=== PATIENT | male | born 1930 | race Caucasian/White ===

== ENCOUNTER 2017-06-25 20:30 | Emergency (ER) | payer MEDICARE ==
[~2017-06-25] VITALS: Ht 185.4 cm; Wt 91.0 kg
[~2017-06-25 20:30] MED LIST: ATOR40TA49 PO; AVOD0.5C PO; DIGO0.12 PO; FOSI10TA PO; GABA300C3 PO; HYDR-2768 PO; HYDR-3533 PO; NIAC500T5 PO; OMEP20TA39 PO; PRIL20CA PO; PROS5TAB2 PO; REST30CA PO; TIMO0.5S29 EACH EYE
[2017-06-25 20:43] VITALS: BP 121/73; PULSE 117; RESP 15; TEMP 100.1; O2SAT 99
[2017-06-25] MEDS ORDERED: SODIUM CHLOR 0.9% 1000 ML INJ 1,000 ML IV SCH (21:14)
[2017-06-25] MEDS ORDERED: ONDANSETRON HCL 4 MG/2 ML VIAL IVP ONE (21:15)
[2017-06-25] MEDS ORDERED: SODIUM CHLORIDE 0.9% FLUSH 10 ML FLUSH IV FLUSH PRN (21:15)
[2017-06-25] MEDS ORDERED: ACETAMINOPHEN 325 MG TAB PO ONE (21:15)
--- NOTE | 2017-06-25 21:29 | PD ---
HPI Chief Complaint: General Weakness Time Seen by Provider: 21:07 Travel History International Travel<30 days: No Contact w/Intl Traveler<30days: No Traveled to known affect area: No History of Present Illness HPI 87-year-old male complains of generalized weakness, nausea vomiting diarrhea. Patient started with nausea vomiting diarrhea at this morning. Patient complains generalized malaise and weakness this evening. Patient denies any headache. Patient denies any chest pain or shortness of breath. Patient denies abdominal pain. Patient denies any fever chills at home. Patient denies any focal weakness or numbness of extremity. Patient denies any blood or mucus in the stool. PFSH Past Medical History Hx Anticoagulant Therapy: Yes Asthma: Yes Autoimmune Disease: No Heart Rhythm Problems: Yes Cancer: No Cardiovascular Problems: Yes High Cholesterol: Yes Chest Pain: Yes Cerebrovascular Accident: No Coronary Artery Disease: Yes Diabetes: No Diminished Hearing: Yes ([place]) Endocrine: No Gastrointestinal Disorders: Yes GERD: Yes Genitourinary: Yes Hypertension: Yes Immune Disorder: No Musculoskeletal: No Neurologic: No Psychiatric: No Reproductive: No Respiratory: Yes Immunizations Current: Yes Migraines: Yes Myocardial Infarction: Yes Renal Failure: Yes Sickle Cell Disease: No Thyroid Disease: No Past Surgical History Abdominal Surgery: Yes (umbilical hernia repair) Appendectomy: Yes Cardiac Surgery: Yes Coronary Artery Bypass Graft: Yes (X 2 bypass) Eye Surgery: Yes (cataracts both eyes) Other Surgery: Yes (both hand carpel tunnel) Social History Alcohol Use: No Tobacco Use: No Substance Use: No Allergies-Medications (Allergen,Severity, Reaction): Coded Allergies: aspirin (Unverified Allergy, Intermediate, 06/25/17) morphine (Unverified Allergy, Unknown, "I TURNED BLUE", 03/11/17) Reported Meds & Prescriptions Reported Meds & Active Scripts Active Reported Hydrocodone-Acetaminophen 7.5 Mg-325 Mg Tab 1 Tab PO Q6H PRN Fosinopril (Fosinopril Sodium) 10 Mg Tab 10 Mg PO DAILY Temazepam 30 Mg Cap 30 Mg PO HS PRN Hydrochlorothiazide 25 Mg Tab 25 Mg PO BID Finasteride 5 Mg Tab 5 Mg PO DAILY Do not crush. Prilosec (Omeprazole Magnesium) 20 Mg Tab Atorvastatin (Atorvastatin Calcium) 40 Mg Tab 40 Mg PO HS Review of Systems General / Constitutional: No: Fever Eyes: No: Visual changes HENT: No: Headaches Cardiovascular: No: Chest Pain or Discomfort Respiratory: No: Shortness of Breath Gastrointestinal: Positive: Nausea, Vomiting, Diarrhea, No: Abdominal Pain Genitourinary: No: Dysuria Musculoskeletal: No: Pain Skin: No Rash Neurologic: No: Weakness Psychiatric: No: Depression Endocrine: No: Polydipsia Hematologic/Lymphatic: No: Easy Bruising Physical Exam Narrative GENERAL: Well-nourished, well-developed patient. SKIN: Focused skin assessment warm/dry. HEAD: Normocephalic. EYES: No scleral icterus. No injection or drainage. NECK: Supple, trachea midline. No JVD or lymphadenopathy. CARDIOVASCULAR: Regular rate and rhythm without murmurs, gallops, or rubs. RESPIRATORY: Breath sounds equal bilaterally. No accessory muscle use. GASTROINTESTINAL: Abdomen soft, non-tender, nondistended. MUSCULOSKELETAL: No cyanosis, or edema. BACK: Nontender without obvious deformity. No CVA tenderness. Neurologic exam normal. Data Data Last Documented VS Vital Signs Date Time Temp Pulse Resp B/P (MAP) Pulse Ox O2 Delivery O2 Flow Rate FiO2 06/25/17 22:58 99 Room Air 06/25/17 20:43 100.1 117 15 121/73 (89) Orders Orders Complete Blood Count With Diff (06/25/17 21:14) Comprehensive Metabolic Panel (06/25/17 21:14) Lipase (06/25/17 21:14) Urinalysis - C+S If Indicated (06/25/17 21:14) Iv Access Insert/Monitor (06/25/17 21:14) Ecg Monitoring (06/25/17 21:14) Oximetry (06/25/17 21:14) Ondansetron Inj (Zofran Inj) (06/25/17 21:15) Sodium Chlor 0.9% 1000 Ml Inj (Ns 1000 M (06/25/17 21:14) Sodium Chloride 0.9% Flush (Ns Flush) (06/25/17 21:15) Acetaminophen (Tylenol) (06/25/17 21:15) Blood Culture (06/25/17 21:14) Lactic Acid (06/25/17 21:14) Diphenoxylate/Atropine Tab (Lomotil Tab) (06/25/17 21:30) Ed Discharge Order (06/26/17 00:44) Labs Laboratory Tests Test 06/25/17 21:15 06/25/17 21:50 White Blood Count 13.7 TH/MM3 Red Blood Count 4.45 MIL/MM3 Hemoglobin 13.4 GM/DL Hematocrit 40.2 % Mean Corpuscular Volume 90.3 FL Mean Corpuscular Hemoglobin 30.0 PG Mean Corpuscular Hemoglobin Concent 33.3 % Red Cell Distribution Width 13.1 % Platelet Count 157 TH/MM3 Mean Platelet Volume 8.0 FL Neutrophils (%) (Auto) 89.2 % Lymphocytes (%) (Auto) 4.6 % Monocytes (%) (Auto) 5.5 % Eosinophils (%) (Auto) 0.4 % Basophils (%) (Auto) 0.3 % Neutrophils # (Auto) 12.3 TH/MM3 Lymphocytes # (Auto) 0.6 TH/MM3 Monocytes # (Auto) 0.7 TH/MM3 Eosinophils # (Auto) 0.1 TH/MM3 Basophils # (Auto) 0.0 TH/MM3 CBC Comment DIFF FINAL Differential Comment Blood Urea Nitrogen 28 MG/DL Creatinine 2.42 MG/DL Random Glucose 124 MG/DL Total Protein 7.4 GM/DL Albumin 3.6 GM/DL Calcium Level 8.9 MG/DL Alkaline Phosphatase 83 U/L Aspartate Amino Transf (AST/SGOT) 32 U/L Alanine Aminotransferase (ALT/SGPT) 26 U/L Total Bilirubin 0.8 MG/DL Sodium Level 136 MEQ/L Potassium Level 4.9 MEQ/L Chloride Level 108 MEQ/L Carbon Dioxide Level 20.0 MEQ/L Anion Gap 8 MEQ/L Estimat Glomerular Filtration Rate 26 ML/MIN Lactic Acid Level 2.2 mmol/L Lipase 186 U/L Urine Color YELLOW Urine Turbidity CLEAR Urine pH 5.0 Urine Specific [place] 1.023 Urine Protein 30 mg/dL Urine Glucose (UA) NEG mg/dL Urine Ketones NEG mg/dL Urine Occult Blood TRACE Urine Nitrite NEG Urine Bilirubin NEG Urine Urobilinogen LESS THAN 2.0 MG/DL Urine Leukocyte Esterase NEG Urine RBC 1 /hpf Urine WBC 2 /hpf Urine Squamous Epithelial Cells <1 /hpf Urine Amorphous Sediment RARE Urine Hyaline Casts 9 /lpf Urine Mucus FEW /lpf Microscopic Urinalysis Comment CULT NOT INDICATED MDM Medical Decision Making Medical Screen Exam Complete: Yes Emergency Medical Condition: Yes Interpretation(s) 21:27 PM. EKG shows sinus rhythm with sinus tachycardia rate 114. Nonspecific ST-T wave change. 12:39 AM. CBC WBC 13.7. 89 neutrophil. Bicarbonate 20. BUN 28. Creatinine 2.42. Lactic acid 2.2. UA negative. Differential Diagnosis Differential diagnosis including gastroenteritis, elect to light abnormality, dehydration, sepsis. Narrative Course 87-year-old male complains of nausea vomiting diarrhea. Normal saline solution 1 L IV bolus. Zofran 4 mg IV. Lomotil one tablet by mouth given. Diagnosis Primary Impression: Gastroenteritis Patient Instructions: General Instructions Additional Instructions: Tylenol for fever. Clear fluids for 24 hours and advance as tolerated. Take medications as needed. Follow-up with personal physician. Return if persistent problem or worse. Med/Other Pt SpecificInfo: Prescription(s) given Scripts Diphenoxylate-Atropine (Lomotil) 2.5-0.025 Mg Tab 1 TAB PO Q6H Y for DIARRHEA, #10 TAB 0 Refills Prov: Dell Carrillo MD 06/26/17 Ondansetron Odt (Zofran Odt) 4 Mg Tab 4 MG SL Q6HR Y for Nausea/Vomiting, #10 TAB 0 Refills Prov: Dell Carrillo MD 06/26/17 Disposition: 01 DISCHARGE HOME Condition: Stable Dell Carrillo MD Jun 25, 2017 21:28
[2017-06-25] MEDS ORDERED: DIPHENOXYLATE/ATROPINE 2.5 MG/0.025 MG TAB PO ONE (21:30)
[2017-06-25 22:06] LABS: AUTOMATED NEUTROPHIL # 12.3 TH/MM3 (1.8-7.7); BASOPHIL % 0.3 % (0.0-2.0); EOSINOPHIL # 0.1 TH/MM3 (0-0.4); EOSINOPHIL % 0.4 % (0.0-4.0); HEMATOCRIT 40.2 % (39.0-51.0); HEMO FLAGS DIFF FINAL; LYMPH % 4.6 % (9.0-44.0); LYMPHOCYTE # 0.6 TH/MM3 (1.0-4.8); MEAN CELL VOLUME 90.3 FL (80.0-100.0); MEAN CORPUSCULAR HGB CONC 33.3 % (32.0-36.0); MONO % 5.5 % (0.0-8.0); NEUT % 89.2 % (16.0-70.0); PLATELET COUNT 157 TH/MM3 (150-450); RED BLOOD COUNT 4.45 MIL/MM3 (4.50-5.90); RED CELL DISTRIBUTION WIDTH 13.1 % (11.6-17.2); WHITE BLOOD COUNT 13.7 TH/MM3 (4.0-11.0)
[2017-06-25 22:28] LABS: ALT (GPT) 26 U/L (12-78)
[2017-06-25 22:30] LABS: BLOOD, URINE TRACE (NEG); COMMENT (UR) CULT NOT INDICATED; CULTURE IF INDICATED CULT NOT INDICATED; GLUCOSE,URINE NEG (NEG); HYALINE CAST, URINE 9 /lpf (RARE); KETONE, URINE NEG (NEG); MUCUS URINE FEW /lpf (OCC); NITRITE,URINE NEG (NEG); SQUAMOUS EPITHELIAL CELL URINE <1 /hpf (0-5); URINE COLOR YELLOW (YELLW/STRAW)
[2017-06-25 22:31] LABS: ALKALINE PHOSPHATASE 83 U/L (45-117); TOTAL BILIRUBIN ADULT 0.8 MG/DL (0.2-1.0)
[2017-06-25 22:58] VITALS: O2SAT 99
[2017-06-25 23:00] LABS: ANION GAP 8 MEQ/L (5-15); AST (GOT) 32 U/L (15-37); BLOOD UREA NITROGEN 28 MG/DL (7-18); CHLORIDE 108 MEQ/L (98-107); GLOMERULAR FILTRATION RATE 26 ML/MIN (>89); SODIUM (NA) 136 MEQ/L (136-145)
[2017-06-25 23:02] LABS: POTASSIUM 4.9 MEQ/L (3.5-5.1)
[2017-06-25] MEDS ORDERED: ATOR40TA16 PO (23:41)
[2017-06-25] MEDS ORDERED: PRIL20TA2 (23:41)
[2017-06-25] MEDS ORDERED: FINA5TAB2 PO (23:41)
[2017-06-25] MEDS ORDERED: HYDR25TA5 PO (23:41)
[2017-06-25] MEDS ORDERED: TEMA30CA PO (23:43)
[2017-06-25] MEDS ORDERED: FOSI10TA PO (23:43)
[2017-06-25] MEDS ORDERED: HYDR-3580 PO (23:43)
[2017-06-26] MEDS ORDERED: ZOFR4TAB3 SL (00:45)
[2017-06-26] MEDS ORDERED: LOMO2.5T PO (00:45)
--- NOTE | 2017-06-26 16:04 | EKG ---
Date Performed: 06/25/2017 Time Performed: 20:47:51 PTAGE: 87 years EKG: SINUS TACHYCARDIA MARKED LEFT AXIS DEVIATION POSSIBLE RIGHT VENTRICULAR CONDUCTION DELAY NO NSPECIFIC T-WAVE ABNORMALITY ABNORMAL ECG Since PREVIOUS TRACING , no significant change noted PREVIOUS TRACIN04/29/2016 18.30 DOCTOR: Ember Delaney Interpretating Date/Time 06/26/2017 16:03:01
== END 2017-06-26 01:54 | disposition home or self-care (01) ==
LOC: NEPE 20:30
DX: K52.9 Noninfective gastroenteritis and colitis, unspecified (principal); R00.0 Tachycardia, unspecified; I12.9 Hypertensive chronic kidney disease with stage 1 through stage 4 chronic kidney disease, or unspecified chronic kidney disease; N18.9 Chronic kidney disease, unspecified; R94.31 Abnormal electrocardiogram [ECG] [EKG]; J45.909 Unspecified asthma, uncomplicated; I25.10 Atherosclerotic heart disease of native coronary artery without angina pectoris; K21.9 Gastro-esophageal reflux disease without esophagitis; I25.2 Old myocardial infarction
CPT/HCPCS: 80053; 81001; 83605; 83690; 85025; 87040; 93005; 96374; 99284; J2405; J7030

== ENCOUNTER 2017-11-04 19:01 | Emergency (ER) | payer MEDICARE ==
[~2017-11-04] VITALS: Ht 175.3 cm; Wt 92.9 kg
[~2017-11-04 19:01] MED LIST changes: +ATOR40TA16 PO; -ATOR40TA49 PO; -AVOD0.5C PO; -DIGO0.12 PO; +FINA5TAB2 PO; -GABA300C3 PO; -HYDR-2768 PO; -HYDR-3533 PO; +HYDR-3580 PO; +HYDR25TA5 PO; +LOMO2.5T PO; -NIAC500T5 PO; -OMEP20TA39 PO; -PRIL20CA PO; +PRIL20TA2; -PROS5TAB2 PO; -REST30CA PO; +TEMA30CA PO; -TIMO0.5S29 EACH EYE; +ZOFR4TAB3 SL
[2017-11-04 19:06] VITALS: BP 143/83; PULSE 107; RESP 18; TEMP 98.7; O2SAT 97
[2017-11-04 19:53] VITALS: RESP 18; O2SAT 98
[2017-11-04] MEDS ORDERED: FAMOTIDINE 20 MG/2 ML VIAL IV PUSH ONE (20:00)
[2017-11-04] MEDS ORDERED: SODIUM CHLORIDE 0.9% FLUSH 10 ML FLUSH IV FLUSH PRN (20:00)
[2017-11-04] MEDS ORDERED: methylPREDNISolone SOD SUCC 125 MG/2 ML VIAL IV PUSH ONE (20:00)
[2017-11-04] MEDS ORDERED: diphenhydrAMINE HCL 50 MG/ML VIAL IVP ONE (20:00)
[2017-11-04] MEDS ORDERED: BACT800T5 PO (20:48)
--- NOTE | 2017-11-04 20:48 | PD ---
HPI Chief Complaint: Allergic/Adverse Reaction Time Seen by Provider: 19:46 Travel History International Travel<30 days: No Contact w/Intl Traveler<30days: No Traveled to known affect area: No History of Present Illness HPI 87-year-old male complains of erythema about the bilateral lower extremities. He was started on Keflex to treat his cellulitis about the left thigh lesion. The rash started about an hour or 2 after he ingested the Keflex. No shortness of breath. No wheezing. No sensation of throat fullness. Benadryl 25 mg by mouth was marginally beneficial at home. Onset gradual. PFSH Past Medical History Hx Anticoagulant Therapy: Yes Asthma: Yes Autoimmune Disease: No Heart Rhythm Problems: Yes Cancer: No Cardiovascular Problems: Yes High Cholesterol: Yes Chest Pain: Yes Cerebrovascular Accident: No Coronary Artery Disease: Yes Diabetes: No Diminished Hearing: Yes ([place]) Endocrine: No Gastrointestinal Disorders: Yes GERD: Yes Genitourinary: Yes Heparin Induced Thrombocytopen: No Hypertension: Yes Immune Disorder: No Implanted Vascular Access Dvce: No Musculoskeletal: No Neurologic: No Psychiatric: No Reproductive: No Respiratory: Yes Immunizations Current: Yes Migraines: Yes Myocardial Infarction: Yes Renal Failure: Yes Sickle Cell Disease: No Thyroid Disease: No Tetanus Vaccination: > 5 Years Influenza Vaccination: No Past Surgical History Abdominal Surgery: Yes (umbilical hernia repair) Appendectomy: Yes Cardiac Surgery: Yes Coronary Artery Bypass Graft: Yes (X 2 bypass) Eye Surgery: Yes (cataracts both eyes) Other Surgery: Yes (both hand carpel tunnel) Social History Alcohol Use: No Tobacco Use: No Substance Use: No Allergies-Medications (Allergen,Severity, Reaction): Coded Allergies: aspirin (Verified Allergy, Intermediate, 11/04/17) cephalexin (Verified Allergy, Mild, rash, 11/04/17) morphine (Verified Allergy, Unknown, "I TURNED BLUE", 11/04/17) Reported Meds & Prescriptions Reported Meds & Active Scripts Active Bactrim DS (Sulfamethoxazole-Trimethoprim) 800-160 Mg Tab 1 Tab PO BID Reported Hydrocodone-Acetaminophen 7.5 Mg-325 Mg Tab 1 Tab PO Q6H PRN Fosinopril (Fosinopril Sodium) 10 Mg Tab 10 Mg PO DAILY Temazepam 30 Mg Cap 30 Mg PO HS PRN Finasteride 5 Mg Tab 5 Mg PO DAILY Do not crush. Prilosec (Omeprazole Magnesium) 20 Mg Tab Atorvastatin (Atorvastatin Calcium) 40 Mg Tab 40 Mg PO HS Review of Systems Except as stated in HPI: all other systems reviewed are Neg General / Constitutional: No: Fever Physical Exam Narrative GENERAL: 87-year-old male well-nourished well-developed no acute distress Vital Signs Date Time Temp Pulse Resp B/P (MAP) Pulse Ox O2 Delivery O2 Flow Rate FiO2 11/04/17 21:03 86 18 118/56 (76) 99 Room Air 11/04/17 19:53 18 98 Room Air 11/04/17 19:43 98 Room Air 11/04/17 19:06 98.7 107 18 143/83 (103) 97 SKIN: Warm and dry. Blanching erythema confluent about the legs and trunk. HEAD: Atraumatic. Normocephalic. EYES: Pupils equal and round. No scleral icterus. No injection or drainage. ENT: No nasal bleeding or discharge. Mucous membranes pink and moist. Posterior oropharynx widely patent. NECK: Trachea midline. No JVD. CARDIOVASCULAR: Regular rate and rhythm. RESPIRATORY: No accessory muscle use. Clear to auscultation. Breath sounds equal bilaterally. GASTROINTESTINAL: Abdomen soft, non-tender, nondistended. Hepatic and splenic margins not palpable. MUSCULOSKELETAL: Extremities without clubbing, cyanosis, or edema. No obvious deformities. NEUROLOGICAL: Awake and alert. No obvious cranial nerve deficits. Motor grossly within normal limits. Five out of 5 muscle strength in the arms and legs. Normal speech. PSYCHIATRIC: Appropriate mood and affect; insight and judgment normal. Data Data Last Documented VS Vital Signs Date Time Temp Pulse Resp B/P (MAP) Pulse Ox O2 Delivery O2 Flow Rate FiO2 11/04/17 21:03 86 18 118/56 (76) 99 Room Air 11/04/17 19:06 98.7 Orders Orders Ecg Monitoring (11/04/17 19:46) Iv Access Insert/Monitor (11/04/17 19:46) Oximetry (11/04/17 19:46) Diphenhydramine Inj (Benadryl Inj) (11/04/17 20:00) Methylprednisolone So Succ Inj (Solumedr (11/04/17 20:00) Sodium Chloride 0.9% Flush (Ns Flush) (11/04/17 20:00) Famotidine Inj (Pepcid Inj) (11/04/17 20:00) Ed Discharge Order (11/04/17 20:50) [facility] Medical Decision Making Medical Screen Exam Complete: Yes Emergency Medical Condition: Yes Medical Record Reviewed: Yes Differential Diagnosis , Cellulitis, anaphylaxis, urticaria, cellulitis Narrative Course Patient received Solu-Medrol, Pepcid and more IV Benadryl. Symptoms resolved after about an hour. Bactrim prescribed in lieu of Keflex. Patient education regarding Keflex. Diagnosis Primary Impression: Allergic reaction Qualified Codes: T78.40XA - Allergy, unspecified, initial encounter Referrals: Primary Care Physician call for appointment Med/Other Pt SpecificInfo: Prescription(s) given Scripts Sulfamethoxazole-Trimethoprim (Bactrim DS) 800-160 Mg Tab 1 TAB PO BID for Infection, #14 TAB 0 Refills Prov: Luis Alberto Castaneda MD 11/04/17 Disposition: 01 DISCHARGE HOME Condition: Stable Luis Alberto Castaneda MD Nov 04, 2017 20:48
[2017-11-04 21:03] VITALS: BP 118/56; PULSE 86; RESP 18; O2SAT 99
== END 2017-11-04 21:22 | disposition home or self-care (01) ==
LOC: PHED 19:01
DX: T36.1X5A Adverse effect of cephalosporins and other beta-lactam antibiotics, initial encounter (principal); E78.00 Pure hypercholesterolemia, unspecified; H91.90 Unspecified hearing loss, unspecified ear; I10 Essential (primary) hypertension; I25.10 Atherosclerotic heart disease of native coronary artery without angina pectoris; I25.2 Old myocardial infarction; J45.909 Unspecified asthma, uncomplicated; K21.9 Gastro-esophageal reflux disease without esophagitis; Z88.2 Allergy status to sulfonamides; Z88.5 Allergy status to narcotic agent; Z95.1 Presence of aortocoronary bypass graft; Z79.01 Long term (current) use of anticoagulants
CPT/HCPCS: 96374; 96375; 99284; J1200; J2930

== ENCOUNTER → 2017-11-25 | Day surgery (SDC) | payer MEDICARE ==
[~2017-11-25] MED LIST changes: +BACT800T5 PO; +CLINDAMYCIN PHOS 600 MG/4 ML VIAL ONE; -HYDR25TA5 PO; +LACTATED RINGER'S 1000 ML INJ 1,000 ML ONE; +LIDOCAINE 1%/EPINEPHrine 1:100,000 SOLN 30 ML VIAL ONE; -LOMO2.5T PO; +MIDAZOLAM HCL 2 MG/2 ML VIAL ONE; +MINERAL OIL 10 ML VIAL ONE; +PROPOFOL 200 MG/20 ML AMP IV ONE; +SODIUM BICARBONATE 8.4% INJ 50 ML ONE; -ZOFR4TAB3 SL
--- NOTE | 2017-11-25 08:39 | PD.OP ---
Operative Report Left thigh keratoacanthoma / SCc Postoperative Diagnosis: Left thigh keratoacanthoma / SCC - Procedure: Excision Left thigh keratoacanthoma / SCC 4.5 x 2.5 cm, frozen section, direct closure Anesthesia: IV sed, Local Lidocaine 1% with Epi + Sodium bicarb Surgeon: Michel Robins Cone Picker(s): RN Resident Surgeon: no Operation and Findings: Left thigh large nodular tumor - had rapid growth initially - approx 3 cm base diameter. has gone down in size in the last couple of weeks - currently 2 cm base diameter noted in holding area. A direct closure is possible now. Preoperative markings were made. patient brought to the OR, IV sedation started. time out done. Lidocaine 1% with epi and sodium bicarb used to infiltrate the site. Prep and drape done. Lesion excised with 4.5 x 2.5 cm down to and including normal fat. Suture marked superior. Sent for frozen section Area closed directly with 3/0 Vicryl internal sutures with undermining of the sides. Orientation horizontal. Minimal blood loss, less than 2 cc, Frozen section report - Invasive SCC with KA, clear margins. Patient stable, no complications. Michel Robins MD November 25, 2017 08:39
== END | disposition home or self-care (01) ==
LOC: ESDC 06:10
PROVIDERS: ATTEND Plastic Surgery
DX: C44.729 Squamous cell carcinoma of skin of left lower limb, including hip (principal)
CPT/HCPCS: 00400; 11606; 88305; 88331; J2250; J3010; J7120

== ENCOUNTER 2018-03-28 16:33 | Inpatient (IN) ==
[2018-03-28 17:20] LABS: Baso # (Auto) 0.3 th/mm3 (0.0-0.2); Baso % (Auto) 1.8 % (0.0-2.0); Eos % (Auto) 0.2 % (0.0-4.0); Hematocrit 39.5 % (39.0-51.0); Hemoglobin 13.1 gm/dL (13.0-17.0); Lymph # (Auto) 2.2 th/mm3 (1.0-4.8); Mean Corpuscular HGB Conc 33.2 % (32.0-36.0); Mean Corpuscular Hemoglobin 29.3 pg (27.0-34.0); Mean Corpuscular Volume 88.2 fL (80.0-100.0); Mean Platelet Volume 7.7 fL (7.0-11.0); Mono # (Auto) 1.1 th/mm3 (0.0-0.9); Mono % (Auto) 6.8 % (0.0-8.0); Neut # (Auto) 12.1 th/mm3 (1.8-7.7); Neut % (Auto) 77.2 % (16.0-70.0); Platelet Count 165 th/mm3 (150-450); Red Blood Count 4.48 mil/mm3 (4.50-5.90); Red Cell Distribution Width 12.7 % (11.6-17.2); White Blood Count 15.7 th/mm3 (4.0-11.0)
[2018-03-28 17:26] LABS: Bilirubin,Urine Negative (Negative); Clarity,Urine Slightly Cloudy (Clear); Color,Urine Yellow (Yellw/Straw); Glucose,Urine (UA) Negative (Negative); Leukocyte Esterase,Urine Small (Negative); Nitrite,Urine Positive (Negative); PH,Urine 5.5 (5.0-8.5); Specific Gravity,Urine Greater/Equal 1.030 (1.002-1.035); Urobilinogen,Urine 0.2 mg/dL (Less than 2)
--- NOTE | 2018-03-28 17:27 | ED ---
HPI General Chief complaint: Weakness Stated complaint: Diarrhea Source: patient and EMS Mode of arrival: EMS Limitations: altered mental status History of Present Illness HPI Narrative: 88-year-old male patient presents to the brought in by EMS, apparently had fallen in his shower and he states that the shower pato had fallen on his head, he has a small contusion and laceration over the right forehead. He is not sure exactly sure how it happened, apparently had to crawl on the bathroom floor, he states that it happened around 10 PM last night. He somehow got himself into his chair and was sitting naked, and it is unclear of who found him but somebody called EMS for him. He states that he has been having diarrhea. He denies any chest pains, trouble breathing, or other issues. He feels generally weak. Related Data Home Medications Medication Instructions Recorded Confirmed atorvastatin 40 mg PO DAILY 03/28/18 03/28/18 finasteride 5 mg PO DAILY 03/28/18 03/28/18 omeprazole 20 mg PO DAILY 03/28/18 03/28/18 Allergies Allergy/AdvReac Type Severity Reaction Status Date / Time aspirin Allergy Intermediate Hives Verified 03/28/18 16:36 cephalexin Allergy Mild rash Verified 03/28/18 16:36 morphine Allergy Unknown "I TURNED Verified 03/28/18 16:36 BLUE" Review of Systems ROS Unobtainable ROS Unobtainable: unobtainable due to mental status PMFSH Medical History Medical History Hx of gastroesophageal reflux (GERD) (Acute) History of high cholesterol (Acute) Surgical History Surgical History Hx of eye surgery (Acute) Hx of appendectomy (Acute) History of tonsillectomy and adenoidectomy (Acute) Hx of laminectomy (Acute) History of open heart surgery (Acute) Social History Social History Substance History: No History of Abuse Second Hand Smoke Exposure: No Smoking Status: Never smoker How Often Do You Have a Drink Containing Alcohol: Monthly or less Recent Travel in [facility] within the Last 8 Weeks: No Recent Out of Country Travel within the Last 8 Weeks: No Immunization History Tetanus Immunization: <5 Years Hx Influenza Vaccine This Season: No Exam Narrative Exam Narrative: GENERAL: Well-developed elderly white male patient currently and moderate distress. Awake, disoriented. SKIN: Focused skin assessment warm/dry. HEAD: Atraumatic. Normocephalic. EYES: Pupils equal and round. No scleral icterus. No injection or drainage. ENT: No nasal bleeding or discharge. Mucous membranes pink and moist. NECK: Trachea midline. No JVD. CARDIOVASCULAR: Regular rate and rhythm. No murmur appreciated. RESPIRATORY: No accessory muscle use. Clear to auscultation. Breath sounds equal bilaterally. GASTROINTESTINAL: Abdomen soft, non-tender, nondistended. Hepatic and splenic margins not palpable. RECTAL EXAM: No masses or tenderness, stool is brown. Hemoccult negative. MUSCULOSKELETAL: No obvious deformities. No clubbing. No cyanosis. No edema. NEUROLOGICAL: Awake and alert. No obvious cranial nerve deficits. Motor grossly within normal limits. Normal speech. PSYCHIATRIC: Appropriate mood and affect; insight and judgment normal. Procedures Hemaprompt Stool Procedural Steps Taken: specimen placed in appropriate test area, developer placed on specimen and control areas and controls appropriately positive and negative Hemaprompt Stool Result: negative Course Initial Documented Vital Signs Temperature 98.7 F 03/28/18 16:37 Pulse Rate 77 03/28/18 16:37 Respiratory Rate 16 03/28/18 16:37 Blood Pressure 118/81 03/28/18 16:37 Pulse Oximetry 94 L 03/28/18 16:37 Last Documented Vital Signs Temperature 98.7 F 03/28/18 16:37 Pulse Rate 81 03/28/18 17:24 Respiratory Rate 16 03/28/18 17:24 Blood Pressure 113/81 03/28/18 17:24 Pulse Oximetry 98 03/28/18 17:24 Medical Decision Making [facility] Narrative Medical decision making narrative: CT the brain did not show any signs of acute intracranial processes. EKG shows no acute dysrhythmias. Lab work shows a significant UTI with a white count of 15, concerning for underlying sepsis. IV antibiotics were initiated after cultures were drawn. At this point, case has been discussed with Dr. Domingo for admission for further treatment. Medical Screen Exam Complete: Yes Emergency Medical Condition: Yes Differential Diagnosis Differential Diagnosis: Syncope versus dehydration versus electrolyte abnormalities versus intracranial injuries Lab Data Lab results reviewed: Yes I reviewed the patient's lab results. Result diagrams: 03/28/18 17:00 03/28/18 17:00 Lab Results 03/28/18 03/28/18 03/28/18 Range/Units 17:00 17:00 17:00 CBC w Diff Auto diff final WBC 15.7 H (4.0-11.0) th/mm3 RBC 4.48 L (4.50-5.90) mil/mm3 Hgb 13.1 (13.0-17.0) gm/dL Hct 39.5 (39.0-51.0) % MCV 88.2 (80.0-100.0) fL MCH 29.3 (27.0-34.0) pg MCHC 33.2 (32.0-36.0) % RDW 12.7 (11.6-17.2) % Plt Count 165 (150-450) th/mm3 MPV 7.7 (7.0-11.0) fL Neut % (Auto) 77.2 H (16.0-70.0) % Lymph % (Auto) 14.0 (9.0-44.0) % [place] % (Auto) 6.8 (0.0-8.0) % Eos % (Auto) 0.2 (0.0-4.0) % Baso % (Auto) 1.8 (0.0-2.0) % Neut # (Auto) 12.1 H (1.8-7.7) th/mm3 Lymph # (Auto) 2.2 (1.0-4.8) th/mm3 [place] # (Auto) 1.1 H (0.0-0.9) th/mm3 Eos # (Auto) 0.0 (0.0-0.4) th/mm3 Baso # (Auto) 0.3 H (0.0-0.2) th/mm3 WBC Differential . Differential Comment . Sodium 140 (136-145) meq/L Potassium 4.3 (3.5-5.1) meq/L Chloride 110 H (98-107) meq/L Carbon Dioxide 20.4 L (21.0-32.0) meq/L Anion Gap 10 (5-15) meq/L BUN 32 H (7-18) mg/dL Creatinine 2.00 H (0.60-1.30) mg/dL Estimated GFR 32 L (>89) mL/min Random Glucose 91 (74-106) mg/dL Lactic Acid (0.4-2.0) mmol/L Calcium 8.6 (8.5-10.1) mg/dL Total Bilirubin 2.0 H (0.2-1.0) mg/dL AST 62 H (15-37) U/L ALT 36 (12-78) U/L Alkaline Phosphatase 83 (45-117) U/L Troponin I 0.08 H (0.02-0.05) ng/mL Total Protein 6.8 (6.4-8.2) g/dL Albumin 3.2 L (3.4-5.0) g/dL Ur Collection Type Clean catch Urine Color Yellow (Yellw/Straw) Urine Clarity Slightly cloudy (Clear) Urine pH 5.5 (5.0-8.5) Ur Specific Bell Greater/equal 1.030 (1.002-1.035) Urine Protein 100 H (Neg-Trace) mg/dL Urine Glucose (UA) Negative (Negative) mg/dL Urine Ketones Negative (Negative) mg/dL Urine Occult Blood Large H (Negative) Urine Nitrate Positive H (Negative) Urine Bilirubin Negative (Negative) Urine Urobilinogen 0.2 (Less than 2) mg/dL Ur Leukocyte Esterase Small H (Negative) Urine RBC 15-50 H (0-3) /hpf Urine WBC 51-189 H (0-5) /hpf Urine WBC Clumps Moderate H (None) Ur Squamous Epith Cells 6-10 H (0-5) /hpf Urine Bacteria Many H (None) /hpf Micro UA Comment Culture indicated Ur Microscopic Review Microscopic reviewed Urine Culture Comments Culture indicated 03/28/18 Range/Units 18:00 CBC w Diff WBC (4.0-11.0) th/mm3 RBC (4.50-5.90) mil/mm3 Hgb (13.0-17.0) gm/dL Hct (39.0-51.0) % MCV (80.0-100.0) fL MCH (27.0-34.0) pg MCHC (32.0-36.0) % RDW (11.6-17.2) % Plt Count (150-450) th/mm3 MPV (7.0-11.0) fL Neut % (Auto) (16.0-70.0) % Lymph % (Auto) (9.0-44.0) % [place] % (Auto) (0.0-8.0) % Eos % (Auto) (0.0-4.0) % Baso % (Auto) (0.0-2.0) % Neut # (Auto) (1.8-7.7) th/mm3 Lymph # (Auto) (1.0-4.8) th/mm3 [place] # (Auto) (0.0-0.9) th/mm3 Eos # (Auto) (0.0-0.4) th/mm3 Baso # (Auto) (0.0-0.2) th/mm3 WBC Differential Differential Comment Sodium (136-145) meq/L Potassium (3.5-5.1) meq/L Chloride (98-107) meq/L Carbon Dioxide (21.0-32.0) meq/L Anion Gap (5-15) meq/L BUN (7-18) mg/dL Creatinine (0.60-1.30) mg/dL Estimated GFR (>89) mL/min Random Glucose (74-106) mg/dL Lactic Acid 1.3 (0.4-2.0) mmol/L Calcium (8.5-10.1) mg/dL Total Bilirubin (0.2-1.0) mg/dL AST (15-37) U/L ALT (12-78) U/L Alkaline Phosphatase (45-117) U/L Troponin I (0.02-0.05) ng/mL Total Protein (6.4-8.2) g/dL Albumin (3.4-5.0) g/dL Ur Collection Type Urine Color (Yellw/Straw) Urine Clarity (Clear) Urine pH (5.0-8.5) Ur Specific Bell (1.002-1.035) Urine Protein (Neg-Trace) mg/dL Urine Glucose (UA) (Negative) mg/dL Urine Ketones (Negative) mg/dL Urine Occult Blood (Negative) Urine Nitrate (Negative) Urine Bilirubin (Negative) Urine Urobilinogen (Less than 2) mg/dL Ur Leukocyte Esterase (Negative) Urine RBC (0-3) /hpf Urine WBC (0-5) /hpf Urine WBC Clumps (None) Ur Squamous Epith Cells (0-5) /hpf Urine Bacteria (None) /hpf Micro UA Comment Ur Microscopic Review Urine Culture Comments Imaging Data Attestation: I personally reviewed and interpreted this imaging study as follows : Radiologist's impression: Head CT 03/28/18 17:00 CONCLUSION: Slight chronic small vessel ischemic and atrophic changes and 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 Chest X-Ray 03/28/18 17:27 CONCLUSION: No acute cardiopulmonary disease. Discharge Plan Discharge Disposition Patient Disposition: 30 Still Patient Discharge Condition Condition: Stable Discharge Details Anticipated Discharge Date: 03/28/18 Diagnosis: Acute UTI, Sepsis Physicians Team ED Provider: Mark Zielger Primary Care Provider: Mehdi Domingo Rxs /Orders / Referrals /Forms Prescriptions: No Action atorvastatin 40 mg Tablet 40 mg PO DAILY RF: 0 finasteride 5 mg Tablet 5 mg PO DAILY RF: 0 omeprazole 20 mg Tablet,Delayed Release (Dr/Ec) 20 mg PO DAILY RF: 0 Discharge Interventions Interventions: Vital Signs Last Done: 03/28/18 17:24 Status ED Status: With Nurse
[2018-03-28 17:29] LABS: Chloride 110 meq/L (98-107); Potassium 4.3 meq/L (3.5-5.1); Sodium 140 meq/L (136-145)
[2018-03-28 17:33] LABS: Bacteria,Urine Many /hpf; Calcium 8.6 mg/dL (8.5-10.1); WBC,Urine 51-189 /hpf (0-5)
[2018-03-28 17:34] LABS: Albumin 3.2 g/dL (3.4-5.0); Anion Gap 10 meq/L (5-15); Blood Urea Nitrogen 32 mg/dL (7-18); Carbon Dioxide 20.4 meq/L (21.0-32.0); Glucose,Random 91 mg/dL (74-106)
[2018-03-28 17:37] LABS: Alanine Aminotransferase 36 U/L (12-78); Aspartate Aminotransferase 62 U/L (15-37); Glomerular Filtration Rate 32 mL/min (>89)
[2018-03-28 17:39] LABS: Total Protein 6.8 g/dL (6.4-8.2)
[2018-03-28 17:40] LABS: Alkaline Phosphatase 83 U/L (45-117)
[2018-03-28 17:42] LABS: Troponin I 0.08 ng/mL (0.02-0.05)
[2018-03-28] MEDS ORDERED: Piperacil/Tazo 4.5 GM Premix 4.5 GM/100 ML BAG IV.SIG STA (17:46)
[2018-03-28] MEDS ORDERED: Sodium Chlor 0.9% Inj 500 ML IV.SIG SCH (18:00)
--- NOTE | 2018-03-28 18:02 | XR ---
EXAM DATE: 03/28/2018 5:54 PM EDT AGE/SEX: 88 years / Male INDICATIONS: Palpitations. CLINICAL DATA: This is the patient's initial encounter. Patient reports that signs and symptoms have been present for 1 day and indicates a pain score of 0/10. MEDICAL/SURGICAL HISTORY: Hypertension. CABG. COMPARISON: No prior exams available for comparison. FINDINGS: The lungs are clear without infiltrate, nodule, or mass. There is no appreciable pleural effusion for technique. Heart and mediastinum are unremarkable. There is evidence for prior median sternotomy. CONCLUSION: No acute cardiopulmonary disease. Electronically signed by: Wan Rich MD 03/28/2018 6:01 PM EDT
--- NOTE | 2018-03-28 18:46 | CT ---
EXAM DATE: 03/28/2018 6:43 PM EDT AGE/SEX: 88 years / Male INDICATIONS: Fall last night, weakness CLINICAL DATA: This is the patient's initial encounter. Patient reports that signs and symptoms have been present for 1 day and indicates a pain score of 6/10. MEDICAL/SURGICAL HISTORY: Gastroesophageal reflux disease. Tonsillectomy. Appendectomy. Eye surger y, Heart surgery RADIATION DOSE: 60.31 CTDI (mGy) COMPARISON: No prior exams available for comparison. TECHNIQUE: CT of the head without contrast. Using automated exposure control and adjustment of the mA and/or kV according to patient size, radiation dose was kept as low as reasonably achievable to ob tain optimal diagnostic quality images. DICOM format image data is available electronically for revi ew and comparison. FINDINGS: There is no evidence for intracranial hemorrhage, mass effect, mass lesions, or edema. The visualize d bony structures appear intact. Slight degree of brain atrophy is seen. Slight periventricular whit e matter changes are seen nonspecific mostly consistent with chronic small vessel ischemic changes. There are no signs of acute infarction for technique. There is near complete opacification of right s phenoid sinus. CONCLUSION: Slight chronic small vessel ischemic and atrophic changes and chronic sinusitis of the r ight sphenoid sinus . Electronically signed by: Wan Rich MD 03/28/2018 6:45 PM EDT
--- NOTE | 2018-03-28 20:41 | P.HP ---
History of Present Illness Service: [facility] hospitalistDrRashid Domingo Primary Care Physician: Mehdi Domingo MD Chief Complaint: Weakness/Fall History of Present Illness: This is an 88-year-old white male who was brought to the emergency room by EMS earlier today. He tells me that he was in the shower last night and somehow got tripped up and grabbed hold of the curtain pato and as he fell to the floor the curtain pato hit him in the head. He did not lose consciousness that he is aware of. He was unable to get up off the floor and states he laid on the floor of his bathroom until someone came to the house today. He is not clear how they found out that he needed help because he does not recall using the telephone to call anyone but he did state the phone saying running several times throughout the day. In the ER he had a mild elevated white blood cell count. His urinalysis suggest a urinary tract infection. He is not noted to be febrile. He stated he had some diarrhea yesterday but has not. He denies any shortness of breath or chest pain. He is admitted for IV antibiotic therapy and some gentle gentle hydration. He may very well need temporary placement and on long-term facility. 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 EGD in 2001 and 2004 that showed gastritis Appendectomy PTCA 1993 Two-vessel coronary artery bypass grafting in 1993 Umbilical hernia repair at age 14 Allergy: Cephalexin Medications: Atorvastatin 40 mg a day Finasteride 5 mg a day Omeprazole 20 mg a day Temazepam 30 mg at night as needed Atenolol eyedrops 0.5% 1 drop to both eyes twice a day for glaucoma HydrocodoneAPAP 7.5 mg325 mg every 6 hours as needed pain Lisinopril 10 mg a day Family history: Father at age 42 of tuberculosis Mother at age 74 of a myocardial infarction Social history: He has never smoked and does not use alcohol. He is retired and previously did maintenance work. He is . - Diagnosis (1) UTI (urinary tract infection) (2) Sepsis (3) Generalized weakness (4) Status post fall (5) BPH (benign prostatic hyperplasia) (6) Hyperlipidemia (7) Coronary artery disease (8) Hypertension (9) Stage 3 chronic kidney disease (10) Peripheral neuropathy (11) AAA (abdominal aortic aneurysm) (12) GERD (gastroesophageal reflux disease) (13) Glaucoma (14) Osteoarthritis Inpatient Certification: I certify that the inpatient services were ordered in accordance with Medicare regulations governing the order. This includes certification that hospital inpatient services are reasonable and necessary and in the case of services not specified as inpatient-only under 42 CFR 419.22(n), that they are appropriately provided as inpatient services in accordance to with the 2-midnight benchmark under 43 CFR 412.3(e) Estimated Total Length of Stay (Days): 2 Plans for Post Hospital Care: Not yet determined Review of Systems Review of systems: General: Denies any fever, chills, sweats. He has just generalized weakness. HEENT: No visual complaints. No runny nose. No sore throat. He has slight hearing problems as usual. Denies any significant headache. He does have a bruise on his forehead from where he fell and hit his head. Cardiovascular: Denies any chest pain, shortness of breath, or heart palpitations. Pulmonary: Denies any significant cough, shortness of breath, pleuritic chest pain Gastrointestinal: Denies any heartburn, indigestion, abdominal pain, nausea, vomiting. Denies any rectal bleeding or melena. He denies constipation. He did have some loose bowel movement yesterday. : Denies any dysuria, hematuria, urgency Musculoskeletal: He has just some slight low back pain which is not unusual for him and he does have some arthritis complaints at times as well. Extremities: He denies any increased swelling of his feet or calf pain. Skin: Without any rash Neuro: He has just a slight headache but not significant. He does have problem with his memory which he has had for a while. He denies any focal weakness. He does have chronic neuropathy in his lower extremities. [facility] - History History Provided By: Patient - Medical History Medical History: Medical History (Last Reviewed 03/28/18 @ 17:26 by Mark Ziegler MD) Hx of gastroesophageal reflux (GERD) (Acute) History of high cholesterol (Acute) - Surgical History Surgical History: Surgical History (Last Reviewed 03/28/18 @ 17:26 by Mark Ziegler MD) Hx of eye surgery (Acute) Hx of appendectomy (Acute) History of tonsillectomy and adenoidectomy (Acute) Hx of laminectomy (Acute) History of open heart surgery (Acute) - Tobacco History Second Hand Smoke Exposure: No Smoking Status: Never smoker - Alcohol History How Often Do You Have a Drink Containing Alcohol: Monthly or less - Substance Use History Substance History: No History of Abuse - Travel History Recent Travel in the [place] Within the Last 8 Weeks: No Recent Travel Out of the Country Within the Last 8 Weeks: No - Immunization History Tetanus Immunization: <5 Years Hx Influenza Vaccine This Season: No Medications and Allergies Active Medications: Active Medications Hydrocodone Bitart/Acetaminophen (Alexander 7.5/325) 1 tab PO Q6H PRN PRN Reason: PAIN 1-10 AND/OR FEVER >101F Atorvastatin Calcium (Lipitor) 40 mg PO DAILY IDANIA Finasteride (Proscar) 5 mg PO DAILY IDANIA Sodium Chloride (Ns Inj) 500 mls @ 0 mls/hr IV.SIG BOLUS IDANIA Last Infusion: 03/28/18 18:03 Dose: Infused Sodium Chloride (Ns Inj) 1,000 mls @ 42 mls/hr IV.CONT .[id number] IDANIA Piperacillin/Tazobactam/Dextrose (Zosyn 2.25 Gm Premix) 50 mls @ 100 mls/hr IV.SIG Q6H IDANIA Pantoprazole Sodium (Protonix) 20 mg PO DAILY IDANIA Sodium Chloride (Ns Flush) 2 ml IV.FLUSH PRN PRN PRN Reason: FLUSH AFTER USING IV ACCESS Timolol Maleate (Timoptic 0.5% Drops) 1 drops EACH EYE BID IDANIA Allergies Allergy/AdvReac Type Severity Reaction Status Date / Time aspirin Allergy Intermediate Hives Verified 03/28/18 16:36 cephalexin Allergy Mild rash Verified 03/28/18 16:36 morphine Allergy Unknown "I TURNED Verified 03/28/18 16:36 BLUE" Home Medications Medication Instructions Recorded Confirmed Type atorvastatin 40 mg PO DAILY 03/28/18 03/28/18 History finasteride 5 mg PO DAILY 03/28/18 03/28/18 History omeprazole 20 mg PO DAILY 03/28/18 03/28/18 History Exam Vital signs: Vital Signs 03/28/18 16:37 03/28/18 17:00 03/28/18 17:24 Temperature 98.7 F Pulse Rate 77 81 Respiratory Rate 16 16 Blood Pressure 118/81 113/81 Pulse Oximetry 94 L 98 98 03/28/18 19:11 Temperature Pulse Rate 85 Respiratory Rate 16 Blood Pressure 116/69 Pulse Oximetry 98 Intake & Output 03/28/18 03/28/18 03/29/18 06:59 18:59 06:59 Intake Total 600 / 600 Balance 600 / 600 Weight 90 kg Intake: IV 600 / 600 Zosyn 4.5 GM Premix 4.5 gm In 100 / 100 100 ml @ 200 mls/hr IV.SIG STAT STA Rx#:[id number] NS Inj 500 ML @ Wide Open IV. 500 / 500 SIG BOLUS IDANIA Rx#:[id number] Narrative: This is a pleasant white male in no distress. HEENT: Pupils equal, EOMs intact, sclera nonicteric, mouth without lesions, TMs intact, nose without lesions. He has just a small area of some bruising of the right frontal region of his head Neck: No JVD, neck is supple, no carotid bruit Heart: Regular rate and rhythm with grade 1/6 systolic murmur in the aortic region. Lungs: Clear to auscultation Abdomen: Soft, nontender, no masses, no organomegaly Extremities: No edema, pulses palpated, no calf tenderness Skin: Without lesions or rash Neuro: Alert, oriented, normal motor exam, sensation intact, cranial nerves intact Results - Labs CBC & Chem 7: 03/28/18 17:00 03/28/18 17:00 Labs: Laboratory Results - last 24 hr 03/28/18 03/28/18 03/28/18 17:00 17:00 17:00 CBC w Diff Auto diff final WBC 15.7 H RBC 4.48 L Hgb 13.1 Hct 39.5 MCV 88.2 MCH 29.3 MCHC 33.2 RDW 12.7 Plt Count 165 MPV 7.7 Neut % (Auto) 77.2 H Lymph % (Auto) 14.0 [place] % (Auto) 6.8 Eos % (Auto) 0.2 Baso % (Auto) 1.8 Neut # (Auto) 12.1 H Lymph # (Auto) 2.2 [place] # (Auto) 1.1 H Eos # (Auto) 0.0 Baso # (Auto) 0.3 H WBC Differential . Differential Comment . Sodium 140 Potassium 4.3 Chloride 110 H Carbon Dioxide 20.4 L Anion Gap 10 BUN 32 H Creatinine 2.00 H Estimated GFR 32 L Random Glucose 91 Lactic Acid Calcium 8.6 Total Bilirubin 2.0 H AST 62 H ALT 36 Alkaline Phosphatase 83 Troponin I 0.08 H Total Protein 6.8 Albumin 3.2 L Ur Collection Type Clean catch Urine Color Yellow Urine Clarity Slightly cloudy Urine pH 5.5 Ur Specific [place] Greater/equal 1.030 Urine Protein 100 H Urine Glucose (UA) Negative Urine Ketones Negative Urine Occult Blood Large H Urine Nitrate Positive H Urine Bilirubin Negative Urine Urobilinogen 0.2 Ur Leukocyte Esterase Small H Urine RBC 15-50 H Urine WBC 51-189 H Urine WBC Clumps Moderate H Ur Squamous Epith Cells 6-10 H Urine Bacteria Many H Micro UA Comment Culture indicated Ur Microscopic Review Microscopic reviewed Urine Culture Comments Culture indicated 03/28/18 18:00 CBC w Diff WBC RBC Hgb Hct MCV MCH MCHC RDW Plt Count MPV Neut % (Auto) Lymph % (Auto) [place] % (Auto) Eos % (Auto) Baso % (Auto) Neut # (Auto) Lymph # (Auto) [place] # (Auto) Eos # (Auto) Baso # (Auto) WBC Differential Differential Comment Sodium Potassium Chloride Carbon Dioxide Anion Gap BUN Creatinine Estimated GFR Random Glucose Lactic Acid 1.3 Calcium Total Bilirubin AST ALT Alkaline Phosphatase Troponin I Total Protein Albumin Ur Collection Type Urine Color Urine Clarity Urine pH Ur Specific [place] Urine Protein Urine Glucose (UA) Urine Ketones Urine Occult Blood Urine Nitrate Urine Bilirubin Urine Urobilinogen Ur Leukocyte Esterase Urine RBC Urine WBC Urine WBC Clumps Ur Squamous Epith Cells Urine Bacteria Micro UA Comment Ur Microscopic Review Urine Culture Comments - Imaging Impressions Head CT 03/28/18 17:00 CONCLUSION: Slight chronic small vessel ischemic and atrophic changes and 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 Chest X-Ray 03/28/18 17:27 CONCLUSION: No acute cardiopulmonary disease. Caprini VTE Risk Assessment Caprini VTE Risk Assessment: Moderate/High Risk (score >= 2) Caprini Risk Assessment Model: Point Value = 1 Point Value = 2 Point Value = 3 Point Value = 5 Age 41-60 Minor surgery BMI > 25 kg/m2 Swollen legs Varicose veins or History of unexplained or recurrent spontaneous Oral contraceptives or hormone replacement Sepsis (< 1 month) Serious lung disease, including pneumonia (< 1 month) Abnormal pulmonary function Acute myocardial infarction Congestive heart failure (< 1 month) History of inflammatory bowel disease Medical patient at bed rest Age 61-74 Arthroscopic surgery Major open surgery (> 45 min) Laparoscopic surgery (> 45 min) Malignancy Confined to bed (> 72 hours) Immobilizing plaster cast Central venous access Age >= 75 History of VTE Family history of VTE Factor V Leiden Prothrombin [id number] Lupus anticoagulant Anticardiolipin antibodies Elevated serum homocysteine Heparin-induced thrombocytopenia Other congenital or acquired thrombophilia Stroke (< 1 month) Elective arthroplasty Hip, pelvis, or leg fracture Acute spinal cord injury (< 1 month) Prophylaxis Regimen: Total Risk Factor Score Risk Level Prophylaxis Regimen 0-1 Low Early ambulation 2 Moderate Order ONE of the following: *Sequential Compression Device (SCD) *Heparin 5000 units SQ BID 3-4 Higher Order ONE of the following medications: *Heparin 5000 units SQ TID *Enoxaparin/Lovenox 40 mg SQ daily (WT < 150 kg, CrCl > 30 mL/min) *Enoxaparin/Lovenox 30 mg SQ daily (WT < 150 kg, CrCl > 10-29 mL/min) *Enoxaparin/Lovenox 30 mg SQ BID (WT < 150 kg, CrCl > 30 mL/min) AND/OR *Sequential Compression Device (SCD) 5 or more Highest Order ONE of the following medications: *Heparin 5000 units SQ TID (Preferred with Epidurals) *Enoxaparin/Lovenox 40 mg SQ daily (WT < 150 kg, CrCl > 30 mL/min) *Enoxaparin/Lovenox 30 mg SQ daily (WT < 150 kg, CrCl > 10-29 mL/min) *Enoxaparin/Lovenox 30 mg SQ BID (WT < 150 kg, CrCl > 30 mL/min) AND *Sequential Compression Device (SCD) Assessment and Plan - Assessment (1) UTI (urinary tract infection) Code(s): N39.0 - Urinary tract infection, site not specified Status: Acute (2) Sepsis Code(s): A41.9 - Sepsis, unspecified organism Status: Acute (3) Generalized weakness Code(s): R53.1 - Weakness Status: Acute (4) Status post fall Code(s): Z91.81 - History of falling Status: Acute (5) BPH (benign prostatic hyperplasia) Code(s): N40.0 - Benign prostatic hyperplasia without lower urinary tract symptoms Status: Chronic (6) Hyperlipidemia Code(s): E78.5 - Hyperlipidemia, unspecified Status: Chronic (7) Coronary artery disease Code(s): I25.10 - Atherosclerotic heart disease of [place] coronary artery without angina pectoris Status: Chronic (8) Hypertension Code(s): I10 - Essential (primary) hypertension Status: Chronic (9) Stage 3 chronic kidney disease Code(s): N18.3 - Chronic kidney disease, stage 3 (moderate) Status: Chronic (10) Peripheral neuropathy Code(s): G62.9 - Polyneuropathy, unspecified Status: Chronic (11) AAA (abdominal aortic aneurysm) Code(s): I71.4 - Abdominal aortic aneurysm, without rupture Status: Chronic (12) GERD (gastroesophageal reflux disease) Code(s): K21.9 - Gastro-esophageal reflux disease without esophagitis Status: Chronic (13) Glaucoma Code(s): H40.9 - Unspecified glaucoma Status: Chronic (14) Osteoarthritis Code(s): M19.90 - Unspecified osteoarthritis, unspecified site Status: Chronic - Plan Plan: He he has been covered with Zosyn for possible sepsis. Her urine culture was ordered. SCDs and NANCY hose will be used for DVT prophylaxis. I have held his lisinopril for blood pressure since his blood pressure is not elevated. I will give him some normal saline and mild rate. We will keep him bed rest tonight and then have PT evaluate him tomorrow to assess his gait stability. We will have case management involved to see whether he may benefit from a short stay at a nursing care facility to ensure that he will not have further falls. We will just maintaining him on hydrocodone which he takes at home for chronic pain as needed. Code Status: He is a full code.
[2018-03-28] MEDS: Sod Chloride 0.9% Inj 1,000 ML IV.CONT SCH (21:04)
[2018-03-28] MEDS: Timolol 0.5% Drops 5 ML Bottle EACH EYE SCH (22:08)
[2018-03-29] MEDS: Piperacil/Tazo 2.25 GM Premix 50 ML IV.SIG SCH ×4 (01:30→17:43)
[2018-03-29 06:28] LABS: Baso % (Auto) 0.3 % (0.0-2.0); Eos # (Auto) 0.1 th/mm3 (0.0-0.4); Eos % (Auto) 1.3 % (0.0-4.0); Hemoglobin 12.1 gm/dL (13.0-17.0); Lymph # (Auto) 2.3 th/mm3 (1.0-4.8); Lymph % (Auto) 20.9 % (9.0-44.0); Mean Corpuscular HGB Conc 34.6 % (32.0-36.0); Mean Corpuscular Hemoglobin 30.6 pg (27.0-34.0); Mean Corpuscular Volume 88.4 fL (80.0-100.0); Mono # (Auto) 0.8 th/mm3 (0.0-0.9); Mono % (Auto) 7.3 % (0.0-8.0); Neut # (Auto) 7.9 th/mm3 (1.8-7.7); Neut % (Auto) 70.2 % (16.0-70.0); Platelet Count 143 th/mm3 (150-450); Red Blood Count 3.96 mil/mm3 (4.50-5.90); Red Cell Distribution Width 12.8 % (11.6-17.2); White Blood Count 11.1 th/mm3 (4.0-11.0)
[2018-03-29 06:39] LABS: Potassium 3.9 meq/L (3.5-5.1)
[2018-03-29 06:42] LABS: Calcium 8.3 mg/dL (8.5-10.1); Carbon Dioxide 21.8 meq/L (21.0-32.0)
--- NOTE | 2018-03-29 07:34 | P.PN ---
Subjective Interval history: No chest pain. No shortness of breath. No abdominal pain. Physical Exam Vital signs: Vital Signs 03/28/18 16:37 03/28/18 17:00 03/28/18 17:24 Temperature 98.7 F Pulse Rate 77 81 Respiratory Rate 16 16 Blood Pressure 118/81 113/81 Pulse Oximetry 94 L 98 98 03/28/18 19:11 03/28/18 21:27 03/28/18 21:30 Temperature 97.8 F Pulse Rate 85 97 H Respiratory Rate 16 16 Blood Pressure 116/69 128/85 Pulse Oximetry 98 97 97 03/29/18 00:00 Temperature 97.8 F Pulse Rate 79 Respiratory Rate 16 Blood Pressure 116/59 L Pulse Oximetry 96 Intake & Output 03/28/18 03/29/18 03/29/18 18:59 06:59 18:59 Intake Total 600 / 600 100 / 100 Output Total 600 / 600 Balance 600 / 600 -500 / -500 Weight 90 kg 85.8 kg Intake: IV 600 / 600 100 / 100 Zosyn 2.25 GM Premix 50 ML @ 100 / 100 100 mls/hr IV.SIG Q6H IDANIA Rx#: [id number] Zosyn 4.5 GM Premix 4.5 gm In 100 / 100 100 ml @ 200 mls/hr IV.SIG STAT STA Rx#:[id number] NS Inj 500 ML @ Wide Open IV. 500 / 500 SIG BOLUS IDANIA Rx#:[id number] Output: Urine 600 / 600 Other: # Voids 2 Date of Last Bowel Movement 03/27/18 Weight On Admission 85.6 kg Narrative: This is a pleasant [] in no distress. HEENT: Pupils equal, EOMs intact, mouth without lesions Neck: No JVD, neck is supple Heart: Regular rate and rhythm with faint systolic murmur Lungs: Clear to auscultation Abdomen: Soft, nontender, no masses Extremities: No edema, pulses palpated, no calf tenderness Neuro: Alert, oriented, normal motor exam, sensation intact Results - Labs CBC & Chem 7: 03/29/18 05:30 03/29/18 05:20 Laboratory Results - last 24 hr 03/28/18 03/28/18 03/28/18 17:00 17:00 17:00 CBC w Diff Auto diff final WBC 15.7 H RBC 4.48 L Hgb 13.1 Hct 39.5 MCV 88.2 MCH 29.3 MCHC 33.2 RDW 12.7 Plt Count 165 MPV 7.7 Neut % (Auto) 77.2 H Lymph % (Auto) 14.0 [place] % (Auto) 6.8 Eos % (Auto) 0.2 Baso % (Auto) 1.8 Neut # (Auto) 12.1 H Lymph # (Auto) 2.2 [place] # (Auto) 1.1 H Eos # (Auto) 0.0 Baso # (Auto) 0.3 H WBC Differential . Differential Comment . Sodium 140 Potassium 4.3 Chloride 110 H Carbon Dioxide 20.4 L Anion Gap 10 BUN 32 H Creatinine 2.00 H Estimated GFR 32 L Random Glucose 91 Lactic Acid Calcium 8.6 Total Bilirubin 2.0 H AST 62 H ALT 36 Alkaline Phosphatase 83 Troponin I 0.08 H Total Protein 6.8 Albumin 3.2 L Ur Collection Type Clean catch Urine Color Yellow Urine Clarity Slightly cloudy Urine pH 5.5 Ur Specific [place] Greater/equal 1.030 Urine Protein 100 H Urine Glucose (UA) Negative Urine Ketones Negative Urine Occult Blood Large H Urine Nitrate Positive H Urine Bilirubin Negative Urine Urobilinogen 0.2 Ur Leukocyte Esterase Small H Urine RBC 15-50 H Urine WBC 51-189 H Urine WBC Clumps Moderate H Ur Squamous Epith Cells 6-10 H Urine Bacteria Many H Micro UA Comment Culture indicated Ur Microscopic Review Microscopic reviewed Urine Culture Comments Culture indicated 03/28/18 03/29/18 03/29/18 18:00 05:20 05:30 CBC w Diff Auto diff final WBC 11.1 H RBC 3.96 L Hgb 12.1 L Hct 35.0 L MCV 88.4 MCH 30.6 MCHC 34.6 RDW 12.8 Plt Count 143 L MPV 8.0 Neut % (Auto) 70.2 H Lymph % (Auto) 20.9 [place] % (Auto) 7.3 Eos % (Auto) 1.3 Baso % (Auto) 0.3 Neut # (Auto) 7.9 H Lymph # (Auto) 2.3 [place] # (Auto) 0.8 Eos # (Auto) 0.1 Baso # (Auto) 0.0 WBC Differential . Differential Comment . Sodium 141 Potassium 3.9 Chloride 109 H Carbon Dioxide 21.8 Anion Gap 10 BUN 33 H Creatinine 2.00 H Estimated GFR 32 L Random Glucose 99 Lactic Acid 1.3 Calcium 8.3 L Total Bilirubin AST ALT Alkaline Phosphatase Troponin I Total Protein Albumin Ur Collection Type Urine Color Urine Clarity Urine pH Ur Specific [place] Urine Protein Urine Glucose (UA) Urine Ketones Urine Occult Blood Urine Nitrate Urine Bilirubin Urine Urobilinogen Ur Leukocyte Esterase Urine RBC Urine WBC Urine WBC Clumps Ur Squamous Epith Cells Urine Bacteria Micro UA Comment Ur Microscopic Review Urine Culture Comments - Imaging Impressions Head CT 03/28/18 17:00 CONCLUSION: Slight chronic small vessel ischemic and atrophic changes and 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 Chest X-Ray 03/28/18 17:27 CONCLUSION: No acute cardiopulmonary disease. Assessment and Plan - Assessment (1) UTI (urinary tract infection) Code(s): N39.0 - Urinary tract infection, site not specified Status: Acute (2) Sepsis Code(s): A41.9 - Sepsis, unspecified organism Status: Acute (3) Generalized weakness Code(s): R53.1 - Weakness Status: Acute (4) Status post fall Code(s): Z91.81 - History of falling Status: Acute (5) BPH (benign prostatic hyperplasia) Code(s): N40.0 - Benign prostatic hyperplasia without lower urinary tract symptoms Status: Chronic (6) Hyperlipidemia Code(s): E78.5 - Hyperlipidemia, unspecified Status: Chronic (7) Coronary artery disease Code(s): I25.10 - Atherosclerotic heart disease of [place] coronary artery without angina pectoris Status: Chronic (8) Hypertension Code(s): I10 - Essential (primary) hypertension Status: Chronic (9) Stage 3 chronic kidney disease Code(s): N18.3 - Chronic kidney disease, stage 3 (moderate) Status: Chronic (10) Peripheral neuropathy Code(s): G62.9 - Polyneuropathy, unspecified Status: Chronic (11) AAA (abdominal aortic aneurysm) Code(s): I71.4 - Abdominal aortic aneurysm, without rupture Status: Chronic (12) GERD (gastroesophageal reflux disease) Code(s): K21.9 - Gastro-esophageal reflux disease without esophagitis Status: Chronic (13) Glaucoma Code(s): H40.9 - Unspecified glaucoma Status: Chronic (14) Osteoarthritis Code(s): M19.90 - Unspecified osteoarthritis, unspecified site Status: Chronic - Plan Plan: Continue Zosyn for possible sepsis. Continue SCDs and NANCY mills for DVT prophylaxis. PT evaluation today. We will have case management involved to see whether he may benefit from a short stay at a nursing care facility to ensure that he will not have further falls. We will just maintaining him on hydrocodone which he takes at home for chronic pain as needed.
[2018-03-29] MEDS: Finasteride 5 MG Tablet PO SCH (09:20)
[2018-03-29] MEDS: Pantoprazole Sodium 20 MG DR Tablet PO SCH (09:20)
[2018-03-29] MEDS: Timolol 0.5% Drops 5 ML Bottle EACH EYE SCH ×2 (13:50→20:34)
--- NOTE | 2018-03-29 16:11 | ECG ---
Date Performed: 03/28/2018 Time Performed: 17:45:38 PTAGE: 88 years EKG: Sinus rhythm MARKED LEFT AXIS DEVIATION POSSIBLE RIGHT VENTRICULAR CONDUCTION DELAY ABNORMAL ECG Compared to PREVIOUS TRACING , heart rate has decreased from 114 to 81, ST-T changes have improved, o therwise no significant change. PREVIOUS TRACIN06/25/2017 20.47 DOCTOR: Fabian Mendoza Interpretating Date/Time 03/29/2018 16:08:58
[2018-03-29 20:29] VITALS: RESP 18
[2018-03-30] MEDS: Sod Chloride 0.9% Inj 1,000 ML IV.CONT SCH (00:16)
[2018-03-30] MEDS: Piperacil/Tazo 2.25 GM Premix 50 ML IV.SIG SCH ×2 (00:17→05:55)
[2018-03-30 06:28] LABS: Baso % (Auto) 0.6 % (0.0-2.0); Eos # (Auto) 0.2 th/mm3 (0.0-0.4); Eos % (Auto) 2.9 % (0.0-4.0); Hematocrit 34.6 % (39.0-51.0); Hemoglobin 11.5 gm/dL (13.0-17.0); Lymph # (Auto) 1.9 th/mm3 (1.0-4.8); Mean Corpuscular HGB Conc 33.3 % (32.0-36.0); Mean Corpuscular Hemoglobin 30.5 pg (27.0-34.0); Mean Corpuscular Volume 91.7 fL (80.0-100.0); Mean Platelet Volume 7.3 fL (7.0-11.0); Mono # (Auto) 0.6 th/mm3 (0.0-0.9); Mono % (Auto) 7.3 % (0.0-8.0); Neut # (Auto) 5.3 th/mm3 (1.8-7.7); Neut % (Auto) 65.2 % (16.0-70.0); Platelet Count 149 th/mm3 (150-450); Red Blood Count 3.78 mil/mm3 (4.50-5.90); Red Cell Distribution Width 12.5 % (11.6-17.2)
[2018-03-30 06:36] LABS: Potassium 4.1 meq/L (3.5-5.1)
[2018-03-30 06:39] LABS: Calcium 8.3 mg/dL (8.5-10.1); Carbon Dioxide 22.7 meq/L (21.0-32.0)
--- NOTE | 2018-03-30 07:42 | P.PN ---
Subjective Interval history: He is still a little weak especially when ambulating. No other complaints. Physical Exam Vital signs: Vital Signs 03/29/18 11:24 03/29/18 15:22 03/29/18 20:00 Temperature 97 F L 97.8 F 98.1 F Pulse Rate 69 71 83 Respiratory Rate 20 20 18 Blood Pressure 118/72 122/70 113/55 L Pulse Oximetry 97 97 99 03/30/18 00:00 Temperature 98.4 F Pulse Rate 84 Respiratory Rate 18 Blood Pressure 115/58 L Pulse Oximetry 98 Intake & Output 03/29/18 03/30/18 03/30/18 18:59 06:59 18:59 Intake Total 1180 / 1180 1100 / 1100 Output Total 1000 / 1000 450 / 450 Balance 180 / 180 650 / 650 Intake: IV 100 / 100 1100 / 1100 NS Inj 1,000 ML @ 42 mls/hr IV. 1000 / 1000 CONT .[id number] IDANIA Rx#: [id number] Zosyn 2.25 GM Premix 50 ML @ 100 / 100 100 / 100 100 mls/hr IV.SIG Q6H IDANIA Rx#: [id number] Oral 1080 / 1080 Output: Urine 1000 / 1000 450 / 450 Other: Date of Last Bowel Movement 03/29/18 03/29/18 # Bowel Movements 3 Narrative: This is a pleasant white male in no distress. HEENT: Pupils equal, EOMs intact, mouth without lesions Neck: No JVD, neck is supple Heart: Regular rate and rhythm with faint systolic murmur Lungs: Clear to auscultation Abdomen: Soft, nontender, no masses Extremities: No edema, pulses palpated, no calf tenderness Neuro: Alert, oriented, normal motor exam, sensation intact Results - Labs CBC & Chem 7: 03/30/18 06:05 03/30/18 06:05 Laboratory Results - last 24 hr 03/28/18 03/30/18 03/30/18 17:00 06:05 06:05 CBC w Diff Auto diff final WBC 8.0 RBC 3.78 L Hgb 11.5 L Hct 34.6 L MCV 91.7 MCH 30.5 MCHC 33.3 RDW 12.5 Plt Count 149 L MPV 7.3 Neut % (Auto) 65.2 Lymph % (Auto) 24.0 [place] % (Auto) 7.3 Eos % (Auto) 2.9 Baso % (Auto) 0.6 Neut # (Auto) 5.3 Lymph # (Auto) 1.9 [place] # (Auto) 0.6 Eos # (Auto) 0.2 Baso # (Auto) 0.0 WBC Differential . Differential Comment . Sodium 140 Potassium 4.1 Chloride 111 H Carbon Dioxide 22.7 Anion Gap 6 BUN 34 H Creatinine 2.10 H Estimated GFR 30 L Random Glucose 105 Calcium 8.3 L Ur Collection Type Clean catch Urine Color Yellow Urine Clarity Slightly cloudy Urine pH 5.5 Ur Specific [place] Greater/equal 1.030 Urine Protein 100 H Urine Glucose (UA) Negative Urine Ketones Negative Urine Occult Blood Large H Urine Nitrate Positive H Urine Bilirubin Negative Urine Urobilinogen 0.2 Ur Leukocyte Esterase Small H Urine RBC 15-50 H Urine WBC 51-189 H Urine WBC Clumps Moderate H Ur Squamous Epith Cells 6-10 H Urine Bacteria Many H Micro UA Comment Culture indicated Ur Microscopic Review Microscopic reviewed Urine Culture Comments Culture indicated Microbiology 03/28/18 18:00 Blood - Peripheral Aerobic Blood Culture - Preliminary No growth in 1 day 03/28/18 18:00 Blood - Peripheral Anaerobic Blood Culture - Preliminary No growth in 1 day 03/28/18 17:45 Blood - Peripheral Aerobic Blood Culture - Preliminary No growth in 1 day 03/28/18 17:45 Blood - Peripheral Anaerobic Blood Culture - Preliminary No growth in 1 day 03/28/18 17:00 Clean Catch Urine Urine Culture - Preliminary gram negative rods Laboratory Results - last 48 hr 03/28/18 03/28/18 03/28/18 17:00 17:00 17:00 CBC w Diff Auto diff final WBC 15.7 H RBC 4.48 L Hgb 13.1 Hct 39.5 MCV 88.2 MCH 29.3 MCHC 33.2 RDW 12.7 Plt Count 165 MPV 7.7 Neut % (Auto) 77.2 H Lymph % (Auto) 14.0 [place] % (Auto) 6.8 Eos % (Auto) 0.2 Baso % (Auto) 1.8 Neut # (Auto) 12.1 H Lymph # (Auto) 2.2 [place] # (Auto) 1.1 H Eos # (Auto) 0.0 Baso # (Auto) 0.3 H WBC Differential . Differential Comment . Sodium 140 Potassium 4.3 Chloride 110 H Carbon Dioxide 20.4 L Anion Gap 10 BUN 32 H Creatinine 2.00 H Estimated GFR 32 L Random Glucose 91 Lactic Acid Calcium 8.6 Total Bilirubin 2.0 H AST 62 H ALT 36 Alkaline Phosphatase 83 Troponin I 0.08 H Total Protein 6.8 Albumin 3.2 L Ur Collection Type Clean catch Urine Color Yellow Urine Clarity Slightly cloudy Urine pH 5.5 Ur Specific [place] Greater/equal 1.030 Urine Protein 100 H Urine Glucose (UA) Negative Urine Ketones Negative Urine Occult Blood Large H Urine Nitrate Positive H Urine Bilirubin Negative Urine Urobilinogen 0.2 Ur Leukocyte Esterase Small H Urine RBC 15-50 H Urine WBC 51-189 H Urine WBC Clumps Moderate H Ur Squamous Epith Cells 6-10 H Urine Bacteria Many H Micro UA Comment Culture indicated Ur Microscopic Review Microscopic reviewed Urine Culture Comments Culture indicated 03/28/18 03/29/18 03/29/18 18:00 05:20 05:30 CBC w Diff Auto diff final WBC 11.1 H RBC 3.96 L Hgb 12.1 L Hct 35.0 L MCV 88.4 MCH 30.6 MCHC 34.6 RDW 12.8 Plt Count 143 L MPV 8.0 Neut % (Auto) 70.2 H Lymph % (Auto) 20.9 [place] % (Auto) 7.3 Eos % (Auto) 1.3 Baso % (Auto) 0.3 Neut # (Auto) 7.9 H Lymph # (Auto) 2.3 [place] # (Auto) 0.8 Eos # (Auto) 0.1 Baso # (Auto) 0.0 WBC Differential . Differential Comment . Sodium 141 Potassium 3.9 Chloride 109 H Carbon Dioxide 21.8 Anion Gap 10 BUN 33 H Creatinine 2.00 H Estimated GFR 32 L Random Glucose 99 Lactic Acid 1.3 Calcium 8.3 L Total Bilirubin AST ALT Alkaline Phosphatase Troponin I Total Protein Albumin Ur Collection Type Urine Color Urine Clarity Urine pH Ur Specific [place] Urine Protein Urine Glucose (UA) Urine Ketones Urine Occult Blood Urine Nitrate Urine Bilirubin Urine Urobilinogen Ur Leukocyte Esterase Urine RBC Urine WBC Urine WBC Clumps Ur Squamous Epith Cells Urine Bacteria Micro UA Comment Ur Microscopic Review Urine Culture Comments 03/30/18 03/30/18 06:05 06:05 CBC w Diff Auto diff final WBC 8.0 RBC 3.78 L Hgb 11.5 L Hct 34.6 L MCV 91.7 MCH 30.5 MCHC 33.3 RDW 12.5 Plt Count 149 L MPV 7.3 Neut % (Auto) 65.2 Lymph % (Auto) 24.0 [place] % (Auto) 7.3 Eos % (Auto) 2.9 Baso % (Auto) 0.6 Neut # (Auto) 5.3 Lymph # (Auto) 1.9 [place] # (Auto) 0.6 Eos # (Auto) 0.2 Baso # (Auto) 0.0 WBC Differential . Differential Comment . Sodium 140 Potassium 4.1 Chloride 111 H Carbon Dioxide 22.7 Anion Gap 6 BUN 34 H Creatinine 2.10 H Estimated GFR 30 L Random Glucose 105 Lactic Acid Calcium 8.3 L Total Bilirubin AST ALT Alkaline Phosphatase Troponin I Total Protein Albumin Ur Collection Type Urine Color Urine Clarity Urine pH Ur Specific [place] Urine Protein Urine Glucose (UA) Urine Ketones Urine Occult Blood Urine Nitrate Urine Bilirubin Urine Urobilinogen Ur Leukocyte Esterase Urine RBC Urine WBC Urine WBC Clumps Ur Squamous Epith Cells Urine Bacteria Micro UA Comment Ur Microscopic Review Urine Culture Comments - Imaging Head CT 03/28/18 17:00 CONCLUSION: Slight chronic small vessel ischemic and atrophic changes and 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 Chest X-Ray 03/28/18 17:27 CONCLUSION: No acute cardiopulmonary disease. Assessment and Plan - Assessment (1) UTI (urinary tract infection) Code(s): N39.0 - Urinary tract infection, site not specified Status: Acute (2) Sepsis Code(s): A41.9 - Sepsis, unspecified organism Status: Acute (3) Generalized weakness Code(s): R53.1 - Weakness Status: Acute (4) Status post fall Code(s): Z91.81 - History of falling Status: Acute (5) BPH (benign prostatic hyperplasia) Code(s): N40.0 - Benign prostatic hyperplasia without lower urinary tract symptoms Status: Chronic (6) Hyperlipidemia Code(s): E78.5 - Hyperlipidemia, unspecified Status: Chronic (7) Coronary artery disease Code(s): I25.10 - Atherosclerotic heart disease of [place] coronary artery without angina pectoris Status: Chronic (8) Hypertension Code(s): I10 - Essential (primary) hypertension Status: Chronic (9) Stage 3 chronic kidney disease Code(s): N18.3 - Chronic kidney disease, stage 3 (moderate) Status: Chronic (10) Peripheral neuropathy Code(s): G62.9 - Polyneuropathy, unspecified Status: Chronic (11) AAA (abdominal aortic aneurysm) Code(s): I71.4 - Abdominal aortic aneurysm, without rupture Status: Chronic (12) GERD (gastroesophageal reflux disease) Code(s): K21.9 - Gastro-esophageal reflux disease without esophagitis Status: Chronic (13) Glaucoma Code(s): H40.9 - Unspecified glaucoma Status: Chronic (14) Osteoarthritis Code(s): M19.90 - Unspecified osteoarthritis, unspecified site Status: Chronic - Plan Plan: Patient's urine culture is growing out a gram negative organism (Klebsiella pneumonia) and it is sensitive to Cipro. He is afebrile and his white blood cell count is normal. I will stop his Zosyn and put on Cipro 250mg twice a day ( renal adjusted) for one more week. I will discharge him to a senior care facility for a few days of physical therapy to be certain he will not be at risk for another fall since he lives alone.
[2018-03-30] MEDS ORDERED: Ciprofloxacin 250 MG Tablet PO SCH (09:00)
[2018-03-30] MEDS: Pantoprazole Sodium 20 MG DR Tablet PO SCH (09:48)
[2018-03-30] MEDS: Finasteride 5 MG Tablet PO SCH (09:50)
[2018-03-30] MEDS: Timolol 0.5% Drops 5 ML Bottle EACH EYE SCH (09:51)
[2018-03-30 10:18] VITALS: BP 125/70; PULSE 79; TEMP 96.7; O2SAT 95
== END 2018-03-30 16:46 ==
LOC: PHED 16:33 → PHEDA 19:04 → PH3 20:52
PROVIDERS: ADMIT Family Medicine; ATTEND Family Medicine

== ENCOUNTER 2018-04-16 19:38 | Inpatient (IN) ==
[2018-04-16 20:25] LABS: Baso % (Auto) 0.1 % (0.0-2.0); Eos % (Auto) 0.3 % (0.0-4.0); Hemoglobin 12.7 gm/dL (13.0-17.0); Lymph # (Auto) 1.1 th/mm3 (1.0-4.8); Lymph % (Auto) 10.8 % (9.0-44.0); Mean Corpuscular HGB Conc 33.5 % (32.0-36.0); Mean Corpuscular Hemoglobin 30.7 pg (27.0-34.0); Mean Corpuscular Volume 91.7 fL (80.0-100.0); Mean Platelet Volume 7.1 fL (7.0-11.0); Mono # (Auto) 0.9 th/mm3 (0.0-0.9); Mono % (Auto) 8.9 % (0.0-8.0); Neut # (Auto) 8.3 th/mm3 (1.8-7.7); Neut % (Auto) 79.9 % (16.0-70.0); Platelet Count 166 th/mm3 (150-450); Red Blood Count 4.14 mil/mm3 (4.50-5.90); Red Cell Distribution Width 13.6 % (11.6-17.2); White Blood Count 10.3 th/mm3 (4.0-11.0)
[2018-04-16 20:39] LABS: Activated Partial Thrombo Time 21.5 sec (24.3-30.1); INR 1.1 Ratio; Prothrombin Time 11.1 sec (9.8-11.6)
[2018-04-16 20:43] LABS: Albumin 3.4 g/dL (3.4-5.0); Anion Gap 9 meq/L (5-15); Aspartate Aminotransferase 19 U/L (15-37); Blood Urea Nitrogen 29 mg/dL (7-18); Calcium 8.6 mg/dL (8.5-10.1); Carbon Dioxide 21.7 meq/L (21.0-32.0); Chloride 106 meq/L (98-107); Glomerular Filtration Rate 36 mL/min (>89); Glucose,Random 96 mg/dL (74-106); Potassium 4.1 meq/L (3.5-5.1); Sodium 137 meq/L (136-145)
[2018-04-16 20:49] LABS: Amphetamine Screen,Urine Neg (Neg); Barbiturate Screen,Urine Neg (Neg); Cannabinoid Screen,Urine Neg (Neg); Cocaine Screen,Urine Neg (Neg)
[2018-04-16 20:50] LABS: Bacteria,Urine Many /hpf; Bilirubin,Urine Negative (Negative); Clarity,Urine Hazy (Clear); Color,Urine Yellow (Yellw/Straw); Glucose,Urine (UA) Negative (Negative); Leukocyte Esterase,Urine Small (Negative); Mucus,Urine Few /lpf (Occasional); Nitrite,Urine Positive (Negative); Specific Gravity,Urine 1.011 (1.002-1.035)
[2018-04-16 20:52] LABS: Opiate Screen,Urine Neg (Neg)
[2018-04-16 20:56] LABS: Alanine Aminotransferase 26 U/L (12-78); Alkaline Phosphatase 84 U/L (45-117); Thyroid Stimulating Hormone 0.972 uIU/mL (0.358-3.740)
--- NOTE | 2018-04-16 21:10 | ED ---
HPI General Chief Complaint: Altered Mental Status Stated Complaint: Poss EVAC Time Seen by Provider: 04/16/18 19:57 Source: EMS Mode of arrival: EMS Limitations: altered mental status History of Present Illness HPI narrative: According to family the patient was confused and not as interactive or responsive to verbal cues. No family has come to the bedside so we are unaware or unable to establish what his baseline is. MD complaint: confusion Timing confirmed by: family member Severity: moderate Consistency of symptoms: waxing and waning Associated symptoms: denies other symptoms Related Data Home Medications Medication Instructions Recorded Confirmed atorvastatin 40 mg PO DAILY 03/28/18 04/16/18 finasteride 5 mg PO DAILY 03/28/18 04/16/18 omeprazole 20 mg PO DAILY 03/28/18 04/16/18 Previous Rx's Medication Instructions Recorded hydrocodone-acetaminophen 1 tab PO Q6H PRN #12 tab 03/30/18 timolol maleate 1 drops EACH EYE BID ml 03/30/18 Allergies Allergy/AdvReac Type Severity Reaction Status Date / Time aspirin Allergy Intermediate Hives Verified 04/16/18 19:51 cephalexin Allergy Mild rash Verified 04/16/18 19:51 morphine Allergy Unknown "I TURNED Verified 04/16/18 19:51 BLUE" Review of Systems ROS: all other systems reviewed are negative PMFSH History History Provided By: Electricity Trading Analyst / EMT Medical History Medical History Hx of gastroesophageal reflux (GERD) (Acute) History of high cholesterol (Acute) Surgical History Surgical History Hx of eye surgery (Acute) Hx of appendectomy (Acute) History of tonsillectomy and adenoidectomy (Acute) Hx of laminectomy (Acute) History of open heart surgery (Acute) Social History Social History Substance History: No History of Abuse Second Hand Smoke Exposure: No Smoking Status: Never smoker How Often Do You Have a Drink Containing Alcohol: Never Recent Travel in [facility] within the Last 8 Weeks: No Recent Out of Country Travel within the Last 8 Weeks: No Immunization History Tetanus Immunization: Unsure Hx Influenza Vaccine This Season: Yes Exam Narrative Exam Narrative: GENERAL: Elderly, male, confused SKIN: Warm and dry. HEAD: Atraumatic. Normocephalic. EYES: Pupils equal and round. No scleral icterus. No injection or drainage. ENT: No nasal bleeding or discharge. Mucous membranes pink and moist. NECK: Trachea midline. No JVD. CARDIOVASCULAR: Regular rate and rhythm. no rubs or gallops RESPIRATORY: No accessory muscle use. Clear to auscultation. Breath sounds equal bilaterally. GASTROINTESTINAL: Abdomen soft, non-tender, nondistended. No rebound or guarding MUSCULOSKELETAL: Extremities without clubbing, cyanosis, or edema. No obvious deformities. NEUROLOGICAL: Awake and alert. Oriented to name and the president but not to month year or place. . Motor grossly within normal limits. Five out of 5 muscle strength in the arms and legs. Normal speech. PSYCHIATRIC: Appropriate mood and affect; insight and judgment normal. Course Initial Documented Vital Signs Pulse Rate 113 H 04/16/18 19:45 Respiratory Rate 19 04/16/18 19:45 Blood Pressure 149/77 H 04/16/18 19:45 Pulse Oximetry 98 04/16/18 19:45 Last Documented Vital Signs Temperature 101.0 F H 04/16/18 19:58 Pulse Rate 102 H 04/16/18 21:45 Respiratory Rate 04/16/18 21:45 Blood Pressure 130/77 04/16/18 21:45 Pulse Oximetry 99 04/16/18 21:45 Medical Decision Making MDM Narrative Medical decision making narrative: No evidence of leukocytosis, no anemia, normal platelet count, mild neutrophilia at 80% Coagulation profile within normal limits UA consistent with UTI... Very similar to March 28 findings on the UA, urine culture showed Klebsiella pneumonia... Sensitive to Rocephin as well as Cipro, however no longer sensitive to Bactrim or to Macrobid CT head read by radiologist as chronic mucosal thickening in the sphenoid sinus no intracranial abnormalities Chest x-ray read by radiologist no consolidation or effusion minimal right basilar atelectasis. Medical Screen Exam Complete: Yes Emergency Medical Condition: Yes Medical Records Medical records reviewed: Yes I reviewed the patient's medical records. Lab Data Lab results reviewed: Yes I reviewed the patient's lab results. Result diagrams: 04/16/18 20:00 04/16/18 20:00 Lab Results 04/16/18 04/16/18 04/16/18 Range/Units 20:00 20:00 20:00 WBC 10.3 (4.0-11.0) th/mm3 RBC 4.14 L (4.50-5.90) mil/mm3 Hgb 12.7 L (13.0-17.0) gm/dL Hct 38.0 L (39.0-51.0) % MCV 91.7 (80.0-100.0) fL MCH 30.7 (27.0-34.0) pg MCHC 33.5 (32.0-36.0) % RDW 13.6 (11.6-17.2) % Plt Count 166 (150-450) th/mm3 MPV 7.1 (7.0-11.0) fL Neut % (Auto) 79.9 H (16.0-70.0) % Lymph % (Auto) 10.8 (9.0-44.0) % [place] % (Auto) 8.9 H (0.0-8.0) % Eos % (Auto) 0.3 (0.0-4.0) % Baso % (Auto) 0.1 (0.0-2.0) % Neut # (Auto) 8.3 H (1.8-7.7) th/mm3 Lymph # (Auto) 1.1 (1.0-4.8) th/mm3 [place] # (Auto) 0.9 (0.0-0.9) th/mm3 Eos # (Auto) 0.0 (0.0-0.4) th/mm3 Baso # (Auto) 0.0 (0.0-0.2) th/mm3 WBC Differential . Differential Comment Auto diff final PT 11.1 (9.8-11.6) sec INR 1.1 Ratio APTT 21.5 L (24.3-30.1) sec Sodium 137 (136-145) meq/L Potassium 4.1 (3.5-5.1) meq/L Chloride 106 (98-107) meq/L Carbon Dioxide 21.7 (21.0-32.0) meq/L Anion Gap 9 (5-15) meq/L BUN 29 H (7-18) mg/dL Creatinine 1.80 H (0.60-1.30) mg/dL Estimated GFR 36 L (>89) mL/min POC Glucose (68-110) mg/dl Random Glucose 96 (74-106) mg/dL Calcium 8.6 (8.5-10.1) mg/dL Total Bilirubin 1.2 H (0.2-1.0) mg/dL AST 19 (15-37) U/L ALT 26 (12-78) U/L Alkaline Phosphatase 84 (45-117) U/L Ammonia (11-32) mcmol/L Total Creatine Kinase 66 (39-308) U/L Troponin I Less than 0.02 L (0.02-0.05) ng/mL Total Protein 7.0 (6.4-8.2) g/dL Albumin 3.4 (3.4-5.0) g/dL TSH 0.972 (0.358-3.740) uIU/mL Urine Color (Yellw/Straw) Urine Clarity (Clear) Urine pH (5.0-8.5) Ur Specific [place] (1.002-1.035) Urine Protein (Neg-Trace) mg/dL Urine Glucose (UA) (Negative) mg/dL Urine Ketones (Negative) mg/dL Urine Occult Blood (Negative) Urine Nitrate (Negative) Urine Bilirubin (Negative) Urine Urobilinogen (Less than 2) mg/dL Ur Leukocyte Esterase (Negative) Urine RBC (0-3) /hpf Urine WBC (0-5) /hpf Urine Bacteria (None) /hpf Urine Mucus (Occasional) /lpf Micro UA Comment Ur Microscopic Review Urine Culture Comments Urine Opiates Screen (Neg) Ur Barbiturates Screen (Neg) Ur Amphetamines Screen (Neg) U Benzodiazepines Scrn (Neg) Urine Cocaine Screen (Neg) U Cannabinoids Screen (Neg) 04/16/18 04/16/18 04/16/18 Range/Units 20:00 20:00 20:10 WBC (4.0-11.0) th/mm3 RBC (4.50-5.90) mil/mm3 Hgb (13.0-17.0) gm/dL Hct (39.0-51.0) % MCV (80.0-100.0) fL MCH (27.0-34.0) pg MCHC (32.0-36.0) % RDW (11.6-17.2) % Plt Count (150-450) th/mm3 MPV (7.0-11.0) fL Neut % (Auto) (16.0-70.0) % Lymph % (Auto) (9.0-44.0) % [place] % (Auto) (0.0-8.0) % Eos % (Auto) (0.0-4.0) % Baso % (Auto) (0.0-2.0) % Neut # (Auto) (1.8-7.7) th/mm3 Lymph # (Auto) (1.0-4.8) th/mm3 [place] # (Auto) (0.0-0.9) th/mm3 Eos # (Auto) (0.0-0.4) th/mm3 Baso # (Auto) (0.0-0.2) th/mm3 WBC Differential Differential Comment PT (9.8-11.6) sec INR Ratio APTT (24.3-30.1) sec Sodium (136-145) meq/L Potassium (3.5-5.1) meq/L Chloride (98-107) meq/L Carbon Dioxide (21.0-32.0) meq/L Anion Gap (5-15) meq/L BUN (7-18) mg/dL Creatinine (0.60-1.30) mg/dL Estimated GFR (>89) mL/min POC Glucose (68-110) mg/dl Random Glucose (74-106) mg/dL Calcium (8.5-10.1) mg/dL Total Bilirubin (0.2-1.0) mg/dL AST (15-37) U/L ALT (12-78) U/L Alkaline Phosphatase (45-117) U/L Ammonia 16 (11-32) mcmol/L Total Creatine Kinase (39-308) U/L Troponin I (0.02-0.05) ng/mL Total Protein (6.4-8.2) g/dL Albumin (3.4-5.0) g/dL TSH (0.358-3.740) uIU/mL Urine Color Yellow (Yellw/Straw) Urine Clarity Hazy H (Clear) Urine pH 5.0 (5.0-8.5) Ur Specific [place] 1.011 (1.002-1.035) Urine Protein Negative (Neg-Trace) mg/dL Urine Glucose (UA) Negative (Negative) mg/dL Urine Ketones Negative (Negative) mg/dL Urine Occult Blood Small H (Negative) Urine Nitrate Positive H (Negative) Urine Bilirubin Negative (Negative) Urine Urobilinogen Less than 2 (Less than 2) mg/dL Ur Leukocyte Esterase Small H (Negative) Urine RBC 1 (0-3) /hpf Urine WBC 21 H (0-5) /hpf Urine Bacteria Many H (None) /hpf Urine Mucus Few H (Occasional) /lpf Micro UA Comment Culture indicated Ur Microscopic Review Not Reportable Urine Culture Comments Culture indicated Urine Opiates Screen Neg (Neg) Ur Barbiturates Screen Neg (Neg) Ur Amphetamines Screen Neg (Neg) U Benzodiazepines Scrn Neg (Neg) Urine Cocaine Screen Neg (Neg) U Cannabinoids Screen Neg (Neg) 04/16/18 Range/Units 21:43 WBC (4.0-11.0) th/mm3 RBC (4.50-5.90) mil/mm3 Hgb (13.0-17.0) gm/dL Hct (39.0-51.0) % MCV (80.0-100.0) fL MCH (27.0-34.0) pg MCHC (32.0-36.0) % RDW (11.6-17.2) % Plt Count (150-450) th/mm3 MPV (7.0-11.0) fL Neut % (Auto) (16.0-70.0) % Lymph % (Auto) (9.0-44.0) % [place] % (Auto) (0.0-8.0) % Eos % (Auto) (0.0-4.0) % Baso % (Auto) (0.0-2.0) % Neut # (Auto) (1.8-7.7) th/mm3 Lymph # (Auto) (1.0-4.8) th/mm3 [place] # (Auto) (0.0-0.9) th/mm3 Eos # (Auto) (0.0-0.4) th/mm3 Baso # (Auto) (0.0-0.2) th/mm3 WBC Differential Differential Comment PT (9.8-11.6) sec INR Ratio APTT (24.3-30.1) sec Sodium (136-145) meq/L Potassium (3.5-5.1) meq/L Chloride (98-107) meq/L Carbon Dioxide (21.0-32.0) meq/L Anion Gap (5-15) meq/L BUN (7-18) mg/dL Creatinine (0.60-1.30) mg/dL Estimated GFR (>89) mL/min POC Glucose 104 (68-110) mg/dl Random Glucose (74-106) mg/dL Calcium (8.5-10.1) mg/dL Total Bilirubin (0.2-1.0) mg/dL AST (15-37) U/L ALT (12-78) U/L Alkaline Phosphatase (45-117) U/L Ammonia (11-32) mcmol/L Total Creatine Kinase (39-308) U/L Troponin I (0.02-0.05) ng/mL Total Protein (6.4-8.2) g/dL Albumin (3.4-5.0) g/dL TSH (0.358-3.740) uIU/mL Urine Color (Yellw/Straw) Urine Clarity (Clear) Urine pH (5.0-8.5) Ur Specific [place] (1.002-1.035) Urine Protein (Neg-Trace) mg/dL Urine Glucose (UA) (Negative) mg/dL Urine Ketones (Negative) mg/dL Urine Occult Blood (Negative) Urine Nitrate (Negative) Urine Bilirubin (Negative) Urine Urobilinogen (Less than 2) mg/dL Ur Leukocyte Esterase (Negative) Urine RBC (0-3) /hpf Urine WBC (0-5) /hpf Urine Bacteria (None) /hpf Urine Mucus (Occasional) /lpf Micro UA Comment Ur Microscopic Review Urine Culture Comments Urine Opiates Screen (Neg) Ur Barbiturates Screen (Neg) Ur Amphetamines Screen (Neg) U Benzodiazepines Scrn (Neg) Urine Cocaine Screen (Neg) U Cannabinoids Screen (Neg) Imaging Data Radiologist's impression: Chest X-Ray 04/16/18 19:57 CONCLUSION: Minimal basilar atelectasis. No consolidation or effusion. Postoperative median sternotomy. Head CT 04/16/18 19:57 CONCLUSION: 1. No acute intracranial abnormalities. Cortical volume loss. Stable chronic mucosal thickening in the sphenoid sinus. . Discharge Plan Discharge Disposition Patient Disposition: 30 Still Patient Discharge Condition Condition: Stable Discharge Details Diagnosis: Sepsis, Acute UTI Physicians Team ED Provider: Bryan Waters Primary Care Provider: Mehdi Domingo Attending Provider: Fabian Butterfield Discharge Interventions Interventions: Vital Signs Last Done: 04/16/18 19:58 Status ED Status: Admitted Observation Patient
[2018-04-16] MEDS ORDERED: Aztreonam Inj 2 GM in Sodium Chloride 0.9% Inj 100 ML IV.SIG ONE (21:16)
[2018-04-16 21:24] LABS: Creatine Kinase 66 U/L (39-308)
[2018-04-16] MEDS: Sod Chloride 0.9% Inj 1,000 ML IV.CONT SCH (23:12)
[2018-04-17] MEDS ORDERED: Temazepam 15 MG Capsule PO PRN (04:46)
[2018-04-17 07:18] LABS: Baso % (Auto) 0.3 % (0.0-2.0); Eos % (Auto) 0.2 % (0.0-4.0); Hematocrit 32.8 % (39.0-51.0); Hemoglobin 10.9 gm/dL (13.0-17.0); Lymph # (Auto) 1.3 th/mm3 (1.0-4.8); Lymph % (Auto) 13.8 % (9.0-44.0); Mean Corpuscular HGB Conc 33.3 % (32.0-36.0); Mean Corpuscular Hemoglobin 30.6 pg (27.0-34.0); Mean Corpuscular Volume 91.7 fL (80.0-100.0); Mean Platelet Volume 7.3 fL (7.0-11.0); Mono % (Auto) 10.4 % (0.0-8.0); Neut # (Auto) 7.3 th/mm3 (1.8-7.7); Neut % (Auto) 75.3 % (16.0-70.0); Platelet Count 164 th/mm3 (150-450); Red Blood Count 3.58 mil/mm3 (4.50-5.90); Red Cell Distribution Width 13.6 % (11.6-17.2); White Blood Count 9.7 th/mm3 (4.0-11.0)
[2018-04-17 07:31] LABS: Calcium 8.4 mg/dL (8.5-10.1); Carbon Dioxide 24.1 meq/L (21.0-32.0); Potassium 4.4 meq/L (3.5-5.1)
[2018-04-17] MEDS ORDERED: Ciprofloxacin 500 MG Tablet PO SCH (09:00)
[2018-04-17] MEDS: Finasteride 5 MG Tablet PO SCH (09:51)
[2018-04-17] MEDS: Pantoprazole Sodium 20 MG DR Tablet PO SCH (09:51)
[2018-04-17] MEDS: Sod Chloride 0.9% Inj 1,000 ML IV.CONT SCH (14:02)
[2018-04-17] MEDS: Acetaminophen 325 MG Tablet PO PRN (14:07)
[2018-04-17] MEDS: Timolol 0.5% Drops 5 ML Bottle EACH EYE SCH ×2 (17:35→20:50)
[2018-04-17] MEDS: Ciprofloxacin 250 MG Tablet PO SCH (20:51)
[2018-04-18 07:32] LABS: Baso % (Auto) 0.3 % (0.0-2.0); Eos # (Auto) 0.1 th/mm3 (0.0-0.4); Eos % (Auto) 0.7 % (0.0-4.0); Hematocrit 34.2 % (39.0-51.0); Hemoglobin 11.6 gm/dL (13.0-17.0); Lymph % (Auto) 23.9 % (9.0-44.0); Mean Corpuscular HGB Conc 33.8 % (32.0-36.0); Mean Corpuscular Hemoglobin 30.3 pg (27.0-34.0); Mean Corpuscular Volume 89.7 fL (80.0-100.0); Mean Platelet Volume 7.4 fL (7.0-11.0); Mono # (Auto) 1.1 th/mm3 (0.0-0.9); Mono % (Auto) 13.2 % (0.0-8.0); Neut # (Auto) 5.1 th/mm3 (1.8-7.7); Neut % (Auto) 61.9 % (16.0-70.0); Platelet Count 149 th/mm3 (150-450); Red Blood Count 3.82 mil/mm3 (4.50-5.90); Red Cell Distribution Width 13.7 % (11.6-17.2); White Blood Count 8.3 th/mm3 (4.0-11.0)
[2018-04-18 07:51] LABS: Calcium 8.9 mg/dL (8.5-10.1); Carbon Dioxide 24.5 meq/L (21.0-32.0); Potassium 4.4 meq/L (3.5-5.1)
[2018-04-18] MEDS: Ciprofloxacin 250 MG Tablet PO SCH (08:22)
[2018-04-18] MEDS: Acetaminophen 325 MG Tablet PO PRN (08:23)
[2018-04-18] MEDS: Pantoprazole Sodium 20 MG DR Tablet PO SCH (08:23)
[2018-04-18] MEDS: Finasteride 5 MG Tablet PO SCH (08:23)
[2018-04-18] MEDS: Timolol 0.5% Drops 5 ML Bottle EACH EYE SCH (08:24)
--- NOTE | 2018-04-18 13:11 | ECG ---
Date Performed: 04/16/2018 Time Performed: 19:49:42 PTAGE: 88 years EKG: SINUS TACHYCARDIA MARKED LEFT AXIS DEVIATION POSSIBLE RIGHT VENTRICULAR CONDUCTION DELAY NO NSPECIFIC ST & T-WAVE ABNORMALITY ABNORMAL ECG INTERPRETATION BASED ON A DEFAULT AGE OF 42 YEARS PREVIOUS TRACING : 03/28/2018 17.45 Compared to previous tracing, rate has increased DOCTOR: Brian Castaneda Interpretating Date/Time 04/18/2018 13:09:24
== END 2018-04-18 12:04 | disposition home health service (06) ==
LOC: NEDA 19:38 → NEPC 19:38 → NEPGCP 23:06
PROVIDERS: ADMIT Hospitalist; ATTEND Hospitalist